=== PATIENT | male | born 1940 | race Caucasian/White ===

== ENCOUNTER 2016-10-18 08:00 | Outpatient (CLI) | payer MEDICARE | END 2016-10-18 08:01 | disposition home or self-care (01) | LOC: LAB 08:00 | PROVIDERS: ATTEND Family Medicine | DX: Z53.9 Procedure and treatment not carried out, unspecified reason (principal) ==

== ENCOUNTER 2016-10-18 15:19 | Outpatient (CLI) | payer MEDICARE ==
[2016-10-18 15:38] LABS: BASOPHILS % (AUTO) 0.5 %; EOSINOPHILS % (AUTO) 0.1 %; HCT - HEMATOCRIT 31.6 % (42.0-52.0); HGB - HEMOGLOBIN 10.4 g/dL (14.0-18.0); LYMPHOCYTES # (AUTO) 1.3 10^3/uL (1.5-3.5); LYMPHOCYTES % (AUTO) 21.9 %; MEAN CORPUSCULAR HEMOGLOBIN 31.2 pg (27.0-31.0); MEAN CORPUSCULAR HGB CONC 32.9 g/dL (32.0-36.0); MEAN CORPUSCULAR VOLUME 94.8 fL (80.0-94.0); MONOCYTES # (AUTO) 0.9 10^3/uL (0.0-1.0); MONOCYTES % (AUTO) 14.6 %; NEUTROPHILS # (AUTO) 3.7 10^3/uL (1.5-6.6); NEUTROPHILS % (AUTO) 62.9 %; RED BLOOD COUNT 3.33 10^6/uL (4.70-6.10); RED CELL DISTRIBUTION WIDTH 15.1 % (12.0-15.0)
[2016-10-18 16:24] LABS: ALBUMIN/GLOBULIN RATIO 0.7 (1.0-2.2); BILIRUBIN,TOTAL 0.6 mg/dL (0.2-1.0); BUN - BLOOD UREA NITROGEN 29 mg/dL (6-20); CALCIUM 8.7 mg/dL (8.5-10.3); CARBON DIOXIDE - CO2 28 mmol/L (21-32); CHLORIDE 96 mmol/L (101-111); CREATININE 1.6 mg/dL (0.6-1.2); GFR - MDRD 42 (>89); GLUCOSE 158 mg/dL (70-100); POTASSIUM 4.4 mmol/L (3.5-5.0); SODIUM 132 mmol/L (135-145); TOTAL PROTEIN 7.8 g/dL (6.7-8.2)
== END 2016-10-18 15:20 | disposition home or self-care (01) ==
LOC: LAB 15:19
PROVIDERS: ATTEND Specialist
DX: I48.91 Unspecified atrial fibrillation (principal); I10 Essential (primary) hypertension; N40.0 Benign prostatic hyperplasia without lower urinary tract symptoms; E78.5 Hyperlipidemia, unspecified
CPT/HCPCS: 36415; 80053; 80162; 85025

== ENCOUNTER 2016-11-23 18:51 | Outpatient (CLI) | payer MEDICARE | END 2016-11-23 18:52 | disposition critical access hospital (66) | LOC: EMS 18:51 | PROVIDERS: ATTEND Surgery | DX: S01.21XA Laceration without foreign body of nose, initial encounter (principal); W18.30XA Fall on same level, unspecified, initial encounter; Y92.008 Other place in unspecified non-institutional (private) residence as the place of occurrence of the external cause | CPT/HCPCS: A0425; A0429 ==

== ENCOUNTER 2016-11-23 19:23 | Emergency (ER) | payer MEDICARE ==
[2016-11-23] MEDS ORDERED: BUFFERED LIDOCAINE 10 ML SYRINGE SUBQ STA (19:28)
--- NOTE | 2016-11-23 19:29 | ED Physician Documentation ---
PD HPI Fall - Stated complaint Stated Complaint: GLF - History obtained from History obtained from: Patient, EMS - History of Present Illness Mechanism of injury: Other (Trip and fall at home reinjuring a recently broken nose with a laceration on the bridge of the nose and some other facial abrasions but no loss of consciousness. He does have A. fib but is not currently anticoagulated. No headache or other injury.) Review of Systems Constitutional: denies: Fever, Chills Throat: denies: Dental pain / toothache, Sore throat Cardiac: denies: Chest pain / pressure, Palpitations Respiratory: denies: Dyspnea, Cough PD PAST MEDICAL HISTORY - Present Medications Home Medications: Ambulatory Orders Medication Instructions Recorded Confirmed Aspirin 81 mg PO DAILY 11/23/16 11/23/16 Cephalexin [Keflex] 500 mg PO QID #20 capsule 11/23/16 Digoxin 125 mcg PO DAILY 11/23/16 11/23/16 Divalproex Sodium [Depakote] 1,000 mg PO DAILY 11/23/16 11/23/16 Escitalopram [Lexapro] 10 mg PO DAILY 11/23/16 11/23/16 Famotidine [Pepcid] 20 mg PO DAILY 11/23/16 11/23/16 Tamsulosin [Flomax] 0.4 mg PO DAILY 11/23/16 11/23/16 buPROPion [Wellbutrin Xl] 150 mg PO TID 11/23/16 11/23/16 diltiaZEM [Cardizem] 30 mg PO DAILY 11/23/16 11/23/16 - Allergies Allergies/Adverse Reactions: Allergies Allergy/AdvReac Type Severity Reaction Status Date / Time No Known Drug Allergies Allergy Verified 11/23/16 19:29 PD ED PE NORMAL - Vitals Vital signs reviewed: Yes - General General: Alert and oriented X 3, No acute distress - HEENT HEENT: PERRL, EOMI, Other (Deep laceration over the bridge of the nose with some facial abrasions on the chin and the right forehead. No facial bony tenderness. The nose is crooked but he does not think that is new.) - Neck Neck: Supple, no meningeal sign, No bony TTP - Derm Derm: Normal color, Warm and dry - Extremities Extremities: No deformity, No tenderness to palpate, Normal ROM s pain - Neuro Neuro: Alert and oriented X 3, paper folder 2-12 intact, No motor deficit, No sensory deficit, Normal speech - Psych Psych: Normal mood, Normal affect Results - Vitals Vitals: Vital Signs - 24 hr 11/23/16 11/23/16 19:24 21:01 Temperature 37.1 C Heart Rate 112 H 97 Respiratory 18 16 Rate Blood Pressure 121/84 H 104/61 O2 Saturation 95 97 Oxygen O2 Source Room air - Labs Labs: Laboratory Tests 11/23/16 11/23/16 19:54 19:54 WBC 5.8 RBC 3.38 L Hgb 10.5 L Hct 30.9 L MCV 91.2 MCH 31.0 MCHC 34.0 RDW 15.2 H Plt Count 147 MPV 7.8 Neut # 3.1 Lymph # 1.4 L [place] # 1.2 H Eos # 0.0 Baso # 0.0 Absolute Nucleated RBC 0.00 Nucleated RBCs 0.0 Sodium 133 L Potassium 4.5 Chloride 98 L Carbon Dioxide 30 Anion Gap 5.0 L BUN 25 H Creatinine 1.2 Estimated GFR (MDRD) 59 L Glucose 88 Calcium 8.5 Total Bilirubin 0.5 AST 31 ALT 13 Alkaline Phosphatase 52 Total Protein 7.3 Albumin 2.7 L Globulin 4.6 H Albumin/Globulin Ratio 0.6 L Lipase 35 Last Dose Date UNKNOWN Last Dose Time UNKNOWN Digoxin 0.7 Valproic Acid 34.8 - Rads (name of study) CT Head and cspine Radiology: EMP read contemporaneously (Nasal bone fractures, degenerative changes in the brain and C-spine) Procedures - Laceration (location) Nasal bridge Length in cm: 1 Wound type: Linear Anesthesia: Lidocaine 1%, With bicarb Wound Preparation: Irrigated copiously NS Skin layer closure: Nylon, Interrupted, Size #-0 - enter number (5-0), Sutures - enter # (4) Other: Tetanus UTD Complexity: Simple PD MEDICAL DECISION MAKING - ED course ED course: The patient and family were counseled as to the diagnosis and need for follow- up. I counseled the patient with regard to signs and symptoms that would necessitate an urgent reevaluation in the emergency department. They understand they are welcome to return at any time if worse or if not improving as expected. This document was made in part using voice recognition software. While efforts are made to proofread this documents, sound alike and grammatical errors may occur. Departure - Departure Disposition: 01 Home, Self Care Clinical Impression: Fall from ground level Open nasal fracture Qualifiers: Encounter type: initial encounter Qualified Code(s): S02.2XXB - Fracture of nasal bones, initial encounter for open fracture Head injury Qualifiers: Encounter type: initial encounter Qualified Code(s): S09.90XA - Unspecified injury of head, initial encounter Condition: Good Record reviewed to determine appropriate education?: Yes Instructions: ED Laceration Facial Sutr Tape Prescriptions: Cephalexin [Keflex] 500 mg PO QID #20 capsule Comments: Come back for any signs of infection which would include: Redness, swelling, drainage, increased pain, or fevers. Follow-up with your physician in 6-7 days for suture removal. Your blood pressure was elevated today on check into the emergency department. This does not mean that you have hypertension, it is a common phenomenon to come to the emergency department and have elevated blood pressure. I recommend that she see her primary care physician within the week to have it rechecked when you are feeling better. Discharge Date/Time: 11/23/16 21:02
[2016-11-23] MEDS ORDERED: BUFFERED LIDOCAINE 10 ML SYRINGE ONE (19:36)
[2016-11-23 20:06] LABS: BASOPHILS % (AUTO) 0.8 %; EOSINOPHILS % (AUTO) 0.2 %; HCT - HEMATOCRIT 30.9 % (42.0-52.0); HGB - HEMOGLOBIN 10.5 g/dL (14.0-18.0); LYMPHOCYTES # (AUTO) 1.4 10^3/uL (1.5-3.5); LYMPHOCYTES % (AUTO) 24.3 %; MEAN CORPUSCULAR VOLUME 91.2 fL (80.0-94.0); MEAN PLATELET VOLUME 7.8 fL (7.4-11.4); MONOCYTES # (AUTO) 1.2 10^3/uL (0.0-1.0); NEUTROPHILS # (AUTO) 3.1 10^3/uL (1.5-6.6); NEUTROPHILS % (AUTO) 54.7 %; RED BLOOD COUNT 3.38 10^6/uL (4.70-6.10); RED CELL DISTRIBUTION WIDTH 15.2 % (12.0-15.0); UNCORRECTED WHITE BLOOD COUNT 5.8 x10^3/uL; WHITE BLOOD COUNT 5.8 x10^3/uL (4.8-10.8)
[2016-11-23 20:18] LABS: ALBUMIN/GLOBULIN RATIO 0.6 (1.0-2.2); BILIRUBIN,TOTAL 0.5 mg/dL (0.2-1.0); BUN - BLOOD UREA NITROGEN 25 mg/dL (6-20); CALCIUM 8.5 mg/dL (8.5-10.3); CARBON DIOXIDE - CO2 30 mmol/L (21-32); CHLORIDE 98 mmol/L (101-111); CREATININE 1.2 mg/dL (0.6-1.2); GFR - MDRD 59 (>89); GLUCOSE 88 mg/dL (70-100); LIPASE 35 U/L (22-51); POTASSIUM 4.5 mmol/L (3.5-5.0); SODIUM 133 mmol/L (135-145); TOTAL PROTEIN 7.3 g/dL (6.7-8.2)
--- NOTE | 2016-11-23 20:46 | CT Preliminary Report ---
Exam: CT Cervical Spine W/O IMPRESSION: Moderately severe S-shaped cervical scoliosis and degenerative change cervical spine with out definite superimposed acute fracture or acute malalignment or prevertebral soft tissue swelling. [facility] SITE ID: [id number]
--- NOTE | 2016-11-23 20:48 | CT Report ---
EXAM: CT CERVICAL SPINE WITHOUT CONTRAST DATE: 11/23/2016 08:10 PM HISTORY: Head inj. neck pain COMPARISONS: None. TECHNIQUE: Thin-section axial images were acquired of the cervical spine without contrast. Post-proce ssing: Coronal and sagittal reformats. Other: None. In accordance with CT protocol optimization, one or more of the following dose reduction techniques w ere utilized for this exam: automated exposure control, adjustment of mA and/or KV based on patient s ize, or use of iterative reconstructive technique. FINDINGS: Alignment: Upper cervical dextroscoliosis with lower cervical levoscoliosis. Minimal anterior listhes is C4 on C5, C5 on C6, and C7 on T1. Bones: No fracture or bone lesion. Interspace Levels/Facets: C1-C2 through C7-T1: Degenerative disk space narrowing most marked C6-C7 greater than C5-C6 and C4-C5 . Advanced degenerative facet joint arthropathy most marked left C4-C5 and C5-C6. Musculature: No fatty atrophy. Other: The paravertebral and prevertebral soft tissues are normal. IMPRESSION: Moderately severe S-shaped cervical scoliosis and degenerative change cervical spine with out definite superimposed acute fracture or acute malalignment or prevertebral soft tissue swelling. [facility] Referring Provider Line: [phone] SITE ID: [id number]
--- NOTE | 2016-11-23 20:49 | CT Preliminary Report ---
Exam: CT Head W/O IMPRESSION: 1. Bilateral nasal bone fractures. Moderate paranasal swelling. 2. Generalized age-related cortical atrophic changes without evidence of acute intracranial abnormali ty. [facility] SITE ID: [id number]
[2016-11-23] MEDS ORDERED: CEPHALEXIN 250 MG Prepack 8 PO ONE ×2 (20:52→20:53)
[2016-11-23 21:02] VITALS: BP 104/61
--- NOTE | 2016-11-23 21:12 | CT Report ---
EXAM: CT HEAD EXAM DATE: 11/23/2016 08:22 p.m. CLINICAL HISTORY: Head injury. COMPARISON: None. TECHNIQUE: Multiaxial CT images were obtained from the foramen magnum to the vertex. IV contrast: Non e. Reformats: Coronal. In accordance with CT protocol optimization, one or more of the following dose reduction techniques w ere utilized for this exam: automated exposure control, adjustment of mA and/or KV based on patient s ize, or use of iterative reconstructive technique. FINDINGS: Parenchyma: No intraparenchymal hemorrhage. No evidence of mass, midline shift, or CT findings of acu te infarction. Ornelas-white differentiation is distinct. Extraaxial Spaces: Normal for age. No subdural or epidural collections identified. Ventricles: The ventricles and cortical sulci are enlarged, consistent with age-related tissue loss. Sinuses: Imaged paranasal sinuses, orbits, and mastoids show no significant abnormality. Bones: No calvarial defect or fracture. Bilateral nasal bone fractures. Moderate overlying soft tissu e swelling. Other: Diffuse chronic microangiopathic white matter changes are evident. IMPRESSION: 1. Bilateral nasal bone fractures. Moderate paranasal swelling. 2 Generalized age-related cortical atrophic changes without evidence of acute intracranial abnormalit y. [facility] Referring Provider Line: [phone] SITE ID: [id number]
== END 2016-11-23 21:02 | disposition home or self-care (01) ==
LOC: EDUNIT# → ED 19:23
DX: S02.2XXB Fracture of nasal bones, initial encounter for open fracture (principal); S00.81XA Abrasion of other part of head, initial encounter; W01.0XXA Fall on same level from slipping, tripping and stumbling without subsequent striking against object, initial encounter; Y92.019 Unspecified place in single-family (private) house as the place of occurrence of the external cause; R03.0 Elevated blood-pressure reading, without diagnosis of hypertension; I48.91 Unspecified atrial fibrillation; Z79.82 Long term (current) use of aspirin
CPT/HCPCS: 12011; 36415; 70450; 72125; 80053; 80162; 80164; 83690; 85025; 99283; 99284

== ENCOUNTER 2016-12-01 16:18 | Emergency (ER) | payer MEDICARE ==
--- NOTE | 2016-12-01 17:06 | ED Physician Documentation ---
History of Present Illness - Stated complaint Stated Complaint: LBP/COUGH - Chief complaint Chief Complaint: General - History obtained from History obtained from: Patient, Family - History of Present Illness Timing: Other (76-year-old gentleman with history of atrial fibrillation presents with a week of intermittently productive cough and some low blood pressures at home. They have been monitoring his vital signs, blood pressures as low as 70/50 with heart rates up to 150. He denies any chest pain or trouble breathing. He vacillates on whether or not he has been dizzy.) Review of Systems Ten Systems: 10 systems reviewed and negative Constitutional: reports: Fatigue. denies: Fever, Chills Ears: denies: Loss of hearing, Drainage/discharge Nose: denies: Rhinorrhea / runny nose, Congestion Cardiac: denies: Chest pain / pressure, Palpitations Respiratory: reports: Cough. denies: Dyspnea GI: denies: Abdominal Pain, Nausea, Vomiting, Diarrhea PD PAST MEDICAL HISTORY - Past Medical History Cardiovascular: Hypertension, High cholesterol, Atrial fibrillation - Present Medications Home Medications: Ambulatory Orders Medication Instructions Recorded Confirmed Digoxin 125 mcg PO DAILY 11/23/16 12/01/16 Divalproex Sodium [Depakote] 1,000 mg PO DAILY 11/23/16 12/01/16 Escitalopram [Lexapro] 10 mg PO DAILY 11/23/16 12/01/16 Famotidine [Pepcid] 20 mg PO DAILY 11/23/16 12/01/16 Tamsulosin [Flomax] 0.4 mg PO DAILY 11/23/16 12/01/16 buPROPion [Wellbutrin Xl] 150 mg PO TID 11/23/16 12/01/16 diltiaZEM [Cardizem] 30 mg PO DAILY 11/23/16 12/01/16 Aspirin [Aspirin EC] 81 mg PO DAILY 12/01/16 12/01/16 - Allergies Allergies/Adverse Reactions: Allergies Allergy/AdvReac Type Severity Reaction Status Date / Time No Known Drug Allergies Allergy Verified 11/23/16 19:29 - Social History Does the pt smoke?: No Smoking Status: Never smoker PD ED PE NORMAL - Vitals Vital signs reviewed: Yes - General General: Alert and oriented X 3, No acute distress - HEENT HEENT: PERRL, EOMI, Other (For sutures and the nasal bridge were removed during exam) - Neck Neck: Supple, no meningeal sign, No bony TTP - Cardiac Cardiac: Other (Irregularly irregular) - Respiratory Respiratory: Other (Rhonchi at both bases) - Abdomen Abdomen: Soft, Non tender - Derm Derm: Normal color, Warm and dry - Extremities Extremities: No edema, No calf tenderness / cord - Neuro Neuro: Alert and oriented X 3, Normal speech - Psych Psych: Normal mood, Normal affect Results - Vitals Vitals: Vital Signs - 24 hr 12/01/16 12/01/16 12/01/16 16:23 18:34 18:51 Temperature Heart Rate 126 H 83 Heart Rate [ 92 Sitting] Heart Rate [ 96 Standing] Heart Rate [ 102 H Supine] Respiratory 20 16 Rate Blood Pressure 93/55 L 113/67 Blood Pressure 114/63 [Sitting] Blood Pressure 130/80 [Standing] Blood Pressure 116/72 [Supine] O2 Saturation 96 98 12/01/16 18:56 Temperature 35.9 C L Heart Rate Heart Rate [ Sitting] Heart Rate [ Standing] Heart Rate [ Supine] Respiratory Rate Blood Pressure Blood Pressure [Sitting] Blood Pressure [Standing] Blood Pressure [Supine] O2 Saturation Oxygen O2 Source Room air - EKG (time done) 1641 Rate: Rate (enter#) (68) Rhythm: Atrial fibrillation [place]: Normal QRS: Normal Ischemia: Normal ST segments Computer interpretation: Agree with computer - Labs Labs: Laboratory Tests 12/01/16 12/01/16 12/01/16 17:18 17:18 17:18 WBC 5.0 RBC 3.37 L Hgb 10.3 L Hct 31.2 L MCV 92.6 MCH 30.5 MCHC 32.9 RDW 15.0 Plt Count 160 MPV 7.9 Neut # 2.6 Lymph # 1.4 L Humphreys # 0.9 Eos # 0.0 Baso # 0.0 Absolute Nucleated RBC 0.00 Nucleated RBCs 0.0 Sodium 134 L Potassium 4.2 Chloride 99 L Carbon Dioxide 30 Anion Gap 5.0 L BUN 25 H Creatinine 1.2 Estimated GFR (MDRD) 59 L Glucose 103 H Calcium 8.6 Total Bilirubin 0.4 AST 30 ALT 13 Alkaline Phosphatase 53 Troponin I < 0.04 Total Protein 7.6 Albumin 2.7 L Globulin 4.9 H Albumin/Globulin Ratio 0.6 L Lipase 36 Last Dose Date UNKNOWN Last Dose Time UNKNOWN Digoxin 0.7 Valproic Acid 12/01/16 17:18 WBC RBC Hgb Hct MCV MCH MCHC RDW Plt Count MPV Neut # Lymph # Humphreys # Eos # Baso # Absolute Nucleated RBC Nucleated RBCs Sodium Potassium Chloride Carbon Dioxide Anion Gap BUN Creatinine Estimated GFR (MDRD) Glucose Calcium Total Bilirubin AST ALT Alkaline Phosphatase Troponin I Total Protein Albumin Globulin Albumin/Globulin Ratio Lipase Last Dose Date UNKNOWN Last Dose Time UNKNOWN Digoxin Valproic Acid 30.8 - Rads (name of study) 2v chest Radiology: EMP read contemporaneously (Audible COPD without acute abnormality) PD MEDICAL DECISION MAKING - ED course ED course: 76-year-old gentleman with A. fib presents with dizziness and cough. His chest x-ray is clear and he does not have a white count. He was observed for several hours and orthostatics were done, I could not re-create any of the abnormal vital signs he had at home and he requested discharge. They were advised to call his firer watertender tomorrow for expedited follow-up. Departure - Departure Disposition: 01 Home, Self Care Clinical Impression: Cough Atrial fibrillation Qualifiers: Atrial fibrillation type: chronic Qualified Code(s): I48.2 - Chronic atrial fibrillation Condition: Good Record reviewed to determine appropriate education?: Yes Instructions: Atrial Fibrillation Dc Comments: Return if worse or if new symptoms develop. Call your firer watertender tomorrow for the next available appointment.
[2016-12-01] MEDS: SODIUM CHLORIDE 0.9% 500 ML IV ONE (17:21)
[2016-12-01 17:39] LABS: BASOPHILS % (AUTO) 0.6 %; EOSINOPHILS % (AUTO) 0.3 %; HCT - HEMATOCRIT 31.2 % (42.0-52.0); HGB - HEMOGLOBIN 10.3 g/dL (14.0-18.0); LYMPHOCYTES # (AUTO) 1.4 10^3/uL (1.5-3.5); LYMPHOCYTES % (AUTO) 27.7 %; MEAN CORPUSCULAR HEMOGLOBIN 30.5 pg (27.0-31.0); MEAN CORPUSCULAR HGB CONC 32.9 g/dL (32.0-36.0); MEAN CORPUSCULAR VOLUME 92.6 fL (80.0-94.0); MEAN PLATELET VOLUME 7.9 fL (7.4-11.4); MONOCYTES # (AUTO) 0.9 10^3/uL (0.0-1.0); MONOCYTES % (AUTO) 18.7 %; NEUTROPHILS # (AUTO) 2.6 10^3/uL (1.5-6.6); NEUTROPHILS % (AUTO) 52.7 %; RED BLOOD COUNT 3.37 10^6/uL (4.70-6.10)
[2016-12-01 17:56] LABS: ALBUMIN/GLOBULIN RATIO 0.6 (1.0-2.2); BILIRUBIN,TOTAL 0.4 mg/dL (0.2-1.0); BUN - BLOOD UREA NITROGEN 25 mg/dL (6-20); CALCIUM 8.6 mg/dL (8.5-10.3); CARBON DIOXIDE - CO2 30 mmol/L (21-32); CHLORIDE 99 mmol/L (101-111); CREATININE 1.2 mg/dL (0.6-1.2); GFR - MDRD 59 (>89); GLUCOSE 103 mg/dL (70-100); LIPASE 36 U/L (22-51); POTASSIUM 4.2 mmol/L (3.5-5.0); SODIUM 134 mmol/L (135-145); TOTAL PROTEIN 7.6 g/dL (6.7-8.2)
--- NOTE | 2016-12-01 18:23 | XRAY Preliminary Report ---
Exam: XR Chest 2 View PA/LAT IMPRESSION: 1. No consolidation noted. 2. No pneumothorax or effusions. Probable COPD. [facility] SITE ID: [id number]
[2016-12-01 18:58] VITALS: BP 116/72
--- NOTE | 2016-12-01 19:21 | XRAY Report ---
EXAM: CHEST RADIOGRAPHY EXAM DATE: 12/01/2016 06:10 PM. CLINICAL HISTORY: Cough. COMPARISON: None. TECHNIQUE: 2 views. FINDINGS: Lungs/Pleura: Lungs are mildly hyperinflated. No focal opacities. No pneumothorax or effusions. Pleur al thickening is present at the apices. Mediastinum: No cardiac enlargement. Calcified bilateral hilar nodes are noted. Other: None. IMPRESSION: 1. No consolidation noted. 2. No pneumothorax or effusions. Probable COPD. [facility] Referring Provider Line: [phone] SITE ID: [id number]
== END 2016-12-01 19:13 | disposition home or self-care (01) ==
LOC: ED 16:18
DX: R05 Cough (principal); R42 Dizziness and giddiness; I48.2 Chronic atrial fibrillation; I10 Essential (primary) hypertension; E78.00 Pure hypercholesterolemia, unspecified; Z79.82 Long term (current) use of aspirin
CPT/HCPCS: 36415; 71020; 80053; 80162; 80164; 83690; 84484; 85025; 93005; 99283; 99284

== ENCOUNTER 2017-03-07 16:20 | Outpatient (CLI) | payer MEDICARE ==
[2017-03-07 18:51] LABS: BASOPHILS % (AUTO) 0.6 %; EOSINOPHILS % (AUTO) 0.2 %; HCT - HEMATOCRIT 25.9 % (42.0-52.0); HGB - HEMOGLOBIN 8.6 g/dL (14.0-18.0); LYMPHOCYTES % (AUTO) 24.6 %; MEAN CORPUSCULAR HEMOGLOBIN 30.1 pg (27.0-31.0); MEAN CORPUSCULAR HGB CONC 33.1 g/dL (32.0-36.0); MEAN CORPUSCULAR VOLUME 90.8 fL (80.0-94.0); MONOCYTES % (AUTO) 17.7 %; NEUTROPHILS % (AUTO) 56.9 %; RED BLOOD COUNT 2.85 10^6/uL (4.70-6.10); RED CELL DISTRIBUTION WIDTH 17.6 % (12.0-15.0); UNCORRECTED WHITE BLOOD COUNT 3.6 x10^3/uL; WHITE BLOOD COUNT 3.6 x10^3/uL (4.8-10.8)
[2017-03-07 19:02] LABS: ALBUMIN/GLOBULIN RATIO 0.5 (1.0-2.2); BILIRUBIN,DIRECT 0.1 mg/dL (0.1-0.5); BILIRUBIN,TOTAL 0.5 mg/dL (0.2-1.0); BUN - BLOOD UREA NITROGEN 28 mg/dL (6-20); CARBON DIOXIDE - CO2 26 mmol/L (21-32); CHLORIDE 97 mmol/L (101-111); CREATININE 1.5 mg/dL (0.6-1.2); GFR - MDRD 45 (>89); GLUCOSE 119 mg/dL (70-100); POTASSIUM 4.7 mmol/L (3.5-5.0); SODIUM 129 mmol/L (135-145); TOTAL PROTEIN 6.6 g/dL (6.7-8.2)
[2017-03-07 19:19] LABS: BAND NEUTROPHILS % (MANUAL) 2 %; LYMPHOCYTES % (MANUAL) 31 %; NEUTROPHILS % (MANUAL) 55 %; NP AUTO DIFFERENTIAL? YES; NP MAN DIFFERENTIAL? NO; PLATELET ESTIMATE, MANUAL DECREASED (<130,000) (NORMAL); PLATELET MORPHOLOGY NORMAL APPEARANCE (NORMAL); TOTAL CELLS COUNTED 100
== END 2017-03-07 16:21 | disposition home or self-care (01) ==
LOC: LAB.R 16:20
DX: R79.89 Other specified abnormal findings of blood chemistry (principal); Z51.81 Encounter for therapeutic drug level monitoring; R68.89 Other general symptoms and signs; R94.5 Abnormal results of liver function studies
CPT/HCPCS: 80053; 80164; 82248; 85025

== ENCOUNTER 2017-03-28 17:48 | Outpatient (CLI) | payer MEDICARE ==
[2017-03-28 18:42] LABS: BASOPHILS % (AUTO) 0.4 %; EOSINOPHILS % (AUTO) 0.2 %; HCT - HEMATOCRIT 26.5 % (42.0-52.0); HGB - HEMOGLOBIN 8.8 g/dL (14.0-18.0); LYMPHOCYTES % (AUTO) 26.5 %; MEAN CORPUSCULAR HEMOGLOBIN 29.9 pg (27.0-31.0); MEAN CORPUSCULAR HGB CONC 33.1 g/dL (32.0-36.0); MEAN CORPUSCULAR VOLUME 90.3 fL (80.0-94.0); MEAN PLATELET VOLUME 8.8 fL (7.4-11.4); MONOCYTES # (AUTO) 0.6 10^3/uL (0.0-1.0); MONOCYTES % (AUTO) 16.8 %; NEUTROPHILS # (AUTO) 2.1 10^3/uL (1.5-6.6); NEUTROPHILS % (AUTO) 56.1 %; RED BLOOD COUNT 2.94 10^6/uL (4.70-6.10); RED CELL DISTRIBUTION WIDTH 16.1 % (12.0-15.0); UNCORRECTED WHITE BLOOD COUNT 3.8 x10^3/uL; WHITE BLOOD COUNT 3.8 x10^3/uL (4.8-10.8)
== END 2017-03-28 17:49 | disposition home or self-care (01) ==
LOC: LAB.R 17:48
DX: D64.9 Anemia, unspecified (principal)
CPT/HCPCS: 85025

== ENCOUNTER 2017-04-08 08:00 | Outpatient (CLI) | payer MEDICARE ==
[2017-04-08 11:44] LABS: HCT - HEMATOCRIT 29.5 % (42.0-52.0); MEAN CORPUSCULAR HEMOGLOBIN 30.3 pg (27.0-31.0); MEAN CORPUSCULAR VOLUME 89.1 fL (80.0-94.0); MEAN PLATELET VOLUME 7.3 fL (7.4-11.4); RED BLOOD COUNT 3.31 10^6/uL (4.70-6.10); RED CELL DISTRIBUTION WIDTH 15.8 % (12.0-15.0)
== END 2017-04-08 08:01 | disposition home or self-care (01) ==
LOC: LAB.R 08:00
DX: R79.9 Abnormal finding of blood chemistry, unspecified (principal)

== ENCOUNTER 2017-04-14 14:16 | Outpatient (CLI) | payer MEDICARE | END 2017-04-14 14:17 | disposition critical access hospital (66) | LOC: EMS 14:16 | PROVIDERS: ATTEND Surgery | DX: R50.9 Fever, unspecified (principal) | CPT/HCPCS: A0425; A0429 ==

== ENCOUNTER 2017-04-14 14:39 | Inpatient (IN) | payer MEDICARE ==
--- NOTE | 2017-04-14 15:17 | ED Physician Documentation ---
PD HPI URI - Stated complaint Stated Complaint: PNA - Chief complaint Chief Complaint: Resp - History obtained from History obtained from: Patient, Family - History of Present Illness Timing - onset: How many days ago (3) Timing duration: Days (3) Timing details: Gradual onset, Still present Associated symptoms: Fever, Chills, Nasal congestion, Rhinorrhea, Dry cough, Dyspnea Contributing factors: Sick contact Improves by: Rest, Medication Worsened by: Activity Similar symptoms before: Diagnosis (pneumonia) Recently seen: Other - Additional information Additional information: 77-year-old male was in [facility] when he developed pneumonia and was treated with a Z-Akash. He did have some improvement and he was able to go back home last week. He was well for several days and then over the past 3 days he has had increase in cough and congestion has developed a fever and shortness of breath. Review of Systems Constitutional: reports: Fever, Chills Eyes: denies: Decreased vision Ears: denies: Ear pain Nose: reports: Congestion. denies: Rhinorrhea / runny nose Throat: denies: Sore throat Cardiac: denies: Chest pain / pressure, Palpitations Respiratory: reports: Dyspnea, Cough GI: denies: Abdominal Pain, Nausea, Vomiting : denies: Dysuria PD PAST MEDICAL HISTORY - Past Medical History Past Medical History: Yes Cardiovascular: Hypertension, High cholesterol, Atrial fibrillation Neuro: Dementia Other Past Medical History: Converted from atrial fib a couple of months ago. Has implanted monitor - Past Surgical History Past Surgical History: Yes - Present Medications Home Medications: Ambulatory Orders Medication Instructions Recorded Confirmed Divalproex Sodium [Depakote] 1,000 mg PO DAILY 11/23/16 04/14/17 Escitalopram [Lexapro] 10 mg PO DAILY 11/23/16 04/14/17 Famotidine [Pepcid] 20 mg PO DAILY 11/23/16 04/14/17 Tamsulosin [Flomax] 0.4 mg PO DAILY 11/23/16 04/14/17 buPROPion [Wellbutrin Xl] 150 mg PO TID 11/23/16 04/14/17 Aspirin [Aspirin EC] 81 mg PO DAILY 12/01/16 04/14/17 Amiodarone HCl 1 tab PO DAILY 04/14/17 04/14/17 Loperamide [Imodium] 1 cap PO DAILY PRN 04/14/17 04/14/17 Polyethylene Glycol 3350 [Miralax] 1 pkt PO DAILY 04/14/17 04/14/17 Sennosides [Senna] 1 tab PO DAILY 04/14/17 04/14/17 - Allergies Allergies/Adverse Reactions: Allergies Allergy/AdvReac Type Severity Reaction Status Date / Time No Known Drug Allergies Allergy Verified 04/14/17 14:51 - Social History Does the pt smoke?: No Smoking Status: Never smoker Does the pt drink ETOH?: No Does the pt have substance abuse?: No - Immunizations Immunizations are current?: Yes - POLST Patient has POLST: Yes PD ED PE NORMAL - Vitals Vital signs reviewed: Yes (febrile and hypertension) - General General: Well developed/nourished, Other (The patient is breathing with persed lips ) - HEENT HEENT: Atraumatic, PERRL, EOMI, Other (The left TM is inflamed the right is clear) - Neck Neck: Supple, no meningeal sign, No bony TTP - Cardiac Cardiac: RRR, No murmur - Respiratory Respiratory: No respiratory distress, Other (diminished breath sounds bilaterally ) - Abdomen Abdomen: Soft, Non tender - Back Back: No CVA TTP, No spinal TTP - Derm Derm: Normal color, Warm and dry, No rash - Extremities Extremities: No deformity, No edema - Neuro Neuro: No motor deficit, No sensory deficit Eye Opening: Spontaneous Motor: Obeys Commands Verbal: Oriented GCS Score: 15 - Psych Psych: Normal mood, Normal affect Results - Vitals Vitals: Vital Signs - 24 hr 04/14/17 04/14/17 14:44 15:45 Temperature 37.6 C H 37.3 C Heart Rate 99 100 Respiratory 20 18 Rate Blood Pressure 142/73 H 115/60 O2 Saturation 93 98 Oxygen O2 Source Room air - Labs Labs: Laboratory Tests 04/14/17 04/14/17 04/14/17 15:24 15:24 15:24 WBC 6.5 RBC 3.01 L Hgb 9.0 L Hct 26.7 L MCV 88.5 MCH 29.8 MCHC 33.6 RDW 14.7 Plt Count 178 MPV 7.1 L Neut # 4.7 Lymph # 0.7 L Edgar # 1.1 H Eos # 0.0 Baso # 0.0 Absolute Nucleated RBC 0.00 Nucleated RBC % 0.0 Sodium 127 L Potassium 4.1 Chloride 94 L Carbon Dioxide 25 Anion Gap 8.0 BUN 19 Creatinine 1.1 Estimated GFR (MDRD) 65 L Glucose 95 Lactic Acid Calcium 8.1 L Total Bilirubin 0.7 AST 22 ALT 12 Alkaline Phosphatase 60 Troponin I < 0.04 Total Protein 7.1 Albumin 2.2 L Globulin 4.9 H Albumin/Globulin Ratio 0.4 L Lipase 37 04/14/17 15:24 WBC RBC Hgb Hct MCV MCH MCHC RDW Plt Count MPV Neut # Lymph # Edgar # Eos # Baso # Absolute Nucleated RBC Nucleated RBC % Sodium Potassium Chloride Carbon Dioxide Anion Gap BUN Creatinine Estimated GFR (MDRD) Glucose Lactic Acid 0.7 Calcium Total Bilirubin AST ALT Alkaline Phosphatase Troponin I Total Protein Albumin Globulin Albumin/Globulin Ratio Lipase - Rads (name of study) 1 view chest Radiology: Prelim report reviewed (Impression: Right pleural effusion with overlying atelectasis/infiltrate.), EMP read indepedently, See rad report PD MEDICAL DECISION MAKING - ED course Complexity details: reviewed old records, reviewed results, re-evaluated patient , considered differential, d/w patient, d/w family ED course: 77-year-old male with a cardioversion for afib in February has been a resident at [facility] for respite care while family was on vacation and during that time he developed a pneumonia and was treated with azithromycin about 2 weeks ago. He seemed to improve and he has gone home about one week ago. Over the past 3 days he has developed a cough and now fever and today he has had a precipitous decline. The daughter was going to wait until tomorrow to go in to the doctor and this afternoon he was worse with fever and choking on phlem. He has fever, infiltrate on x-ray, dyspnea and hypoxia on room air. Departure - Departure Disposition: [facility] DC/Xfer Clinical Impression: Pneumonia Qualifiers: Pneumonia type: due to unspecified organism Laterality: right Lung location: lower lobe of lung Qualified Code(s): J18.1 - Lobar pneumonia, unspecified organism
--- NOTE | 2017-04-14 15:35 | XRAY Preliminary Report ---
Exam: XR CHEST 1 VIEW IMPRESSION: Right pleural effusion with overlying atelectasis/infiltrate. [facility] SITE ID: [id number]
[2017-04-14 15:38] LABS: BASOPHILS % (AUTO) 0.5 %; HCT - HEMATOCRIT 26.7 % (42.0-52.0); LYMPHOCYTES # (AUTO) 0.7 10^3/uL (1.5-3.5); LYMPHOCYTES % (AUTO) 10.2 %; MEAN CORPUSCULAR HEMOGLOBIN 29.8 pg (27.0-31.0); MEAN CORPUSCULAR HGB CONC 33.6 g/dL (32.0-36.0); MEAN CORPUSCULAR VOLUME 88.5 fL (80.0-94.0); MEAN PLATELET VOLUME 7.1 fL (7.4-11.4); MONOCYTES # (AUTO) 1.1 10^3/uL (0.0-1.0); MONOCYTES % (AUTO) 16.7 %; NEUTROPHILS # (AUTO) 4.7 10^3/uL (1.5-6.6); NEUTROPHILS % (AUTO) 72.6 %; RED BLOOD COUNT 3.01 10^6/uL (4.70-6.10); RED CELL DISTRIBUTION WIDTH 14.7 % (12.0-15.0); UNCORRECTED WHITE BLOOD COUNT 6.5 x10^3/uL; WHITE BLOOD COUNT 6.5 x10^3/uL (4.8-10.8)
--- NOTE | 2017-04-14 15:38 | XRAY Report ---
EXAM: CHEST RADIOGRAPHY EXAM DATE: 04/14/2017 03:11 PM. CLINICAL HISTORY: Productive cough for one week. COMPARISON: 12/01/2016. TECHNIQUE: 1 view. FINDINGS: Lungs/Pleura: Small to moderate right pleural effusion with right base haziness. No left pleural effu vika. No pneumothorax. Mediastinum: Within exam limitations, the cardiomediastinal contour is normal. Calcified right hilar nodes again noted. Other: No bony abnormality identified. Loop recorder projects over the heart. IMPRESSION: Right pleural effusion with overlying atelectasis/infiltrate. [facility] Referring Provider Line: [phone] SITE ID: [id number]
[2017-04-14 15:45] LABS: ALBUMIN/GLOBULIN RATIO 0.4 (1.0-2.2); BILIRUBIN,TOTAL 0.7 mg/dL (0.2-1.0); CALCIUM 8.1 mg/dL (8.5-10.3); CREATININE 1.1 mg/dL (0.6-1.2); POTASSIUM 4.1 mmol/L (3.5-5.0); TOTAL PROTEIN 7.1 g/dL (6.7-8.2)
[2017-04-14] MEDS ORDERED: cefTRIAXone 1 GM in SODIUM CHLORIDE 0.9% MINIBAG 100 ML IV STA (16:29)
[2017-04-14] MEDS ORDERED: ACETAMINOPHEN 325 MG TABLET PO PRN (17:11)
[2017-04-14] MEDS ORDERED: TEMAZEPAM 15 MG CAPSULE PO PRN (17:11)
[2017-04-14] MEDS ORDERED: SODIUM CHLORIDE FLUSH 0.9% 10 ML SYRINGE IVP PRN (17:11)
[2017-04-14] MEDS ORDERED: HYDROcod/ACETAM 10 MG/325 MG TABLET PO PRN (17:11)
[2017-04-14] MEDS ORDERED: cefTRIAXone 1 GM VIAL ONE (17:32)
--- NOTE | 2017-04-14 18:43 | HISTORY & PHYSICAL EXAMINATION ---
Chief Complaint - Chief Complaint Chief Complaint: shortness of breath Respiratory Admission HPI - Admitted From Admitted from: ED - History Obtained From Records Reviewed: RN notes reviewed, Old records reviewed History obtained from: Patient, Family - History of Present Illness Severity at the worst: reports: Moderate Context of Onset: reports: Exertion, Inspiration Timing: reports: Gradual onset Duration: reports: Unknown (Pneumonia noted as an outpatient and never resolved. ) Improved with: reports: Rest, Oxygen Worsened by: reports: Exertion, Inspiration Associated symptoms: reports: General weakness HPI Comment/Other: Sagar Sorensen is a 77-year-old male with a history of paroxysmal atrial fibrillation, tremor, hypertension, hyperlipidemia, and dementia who was recently sent home with his son and [id number] after completing rehab at [facility]. He developed pneumonia and was treated with a Z-Chely. He did have some improvement and was able to go back home last week. He was well for several days and then over the past 3 days he has had increase in cough, congestion, has developed a fever and shortness of breath. He will be admitted to the hospitalist service for further IV antibiotic treatment. PMH/PSH - Past Medical History Cardiovascular: positive: Hypertension, High cholesterol, Atrial fibrillation, Other (hx of AAA) Respiratory: positive: Pneumonia, Shortness of breath Neuro: positive: Dementia Endocrine/Autoimmune: positive: None GI: positive: GERD, Chronic diarrhea, Chronic constipation EDM OPERATOR: positive: None : positive: Benign prostate hypertrophy, Incontinence HEENT: positive: None Psych: positive: Bipolar disorder Musculoskeletal: positive: Fatigue MRSA Hx?: No Other Past Medical History: Converted from atrial fib a couple of months ago. Has implanted monitor - Past Surgical History Cardiovascular: positive: AAA Social & Family Hx - Social History Does the pt smoke?: No Smoking Status: Never smoker Does the pt drink ETOH?: No Does the pt have substance abuse?: No - POLST Patient has POLST: Yes Meds/Allgy - Home Medications Home Medications: Ambulatory Orders Medication Instructions Recorded Confirmed Divalproex Sodium [Depakote] 1,000 mg PO DAILY 11/23/16 04/14/17 Escitalopram [Lexapro] 10 mg PO DAILY 11/23/16 04/14/17 Famotidine [Pepcid] 20 mg PO DAILY 11/23/16 04/14/17 Tamsulosin [Flomax] 0.4 mg PO DAILY 11/23/16 04/14/17 buPROPion [Wellbutrin Xl] 150 mg PO DAILY 11/23/16 04/15/17 Aspirin [Aspirin EC] 81 mg PO DAILY 12/01/16 04/14/17 Amiodarone HCl 200 mg PO BID 04/14/17 04/14/17 Digoxin [Digoxin] 125 mcg PO DAILY 04/14/17 04/14/17 Loperamide [Imodium] 2 mg PO DAILY PRN 04/14/17 04/14/17 Polyethylene Glycol 3350 [Miralax] 1 pkt PO DAILY 04/14/17 04/14/17 Sennosides [Senna] 1 tab PO DAILY 04/14/17 04/14/17 - Allergies Allergies/Adverse Reactions: Allergies Allergy/AdvReac Type Severity Reaction Status Date / Time No Known Drug Allergies Allergy Verified 04/14/17 14:51 Review of Systems - Constitutional Constitutional: reports: Fatigue, Fever, Chills, Weakness, Poor appetite - Ears, Nose & Throat Ears, Nose & Throat: reports: Hearing loss, Nasal discharge, Nasal congestion, Postnasal drainage - Respiratory Respiratory: reports: Cough, SOB at rest, SOB with exertion - Musculoskeletal Musculoskeletal: reports: Muscle aches - Integumentary Integumentary: reports: Dryness - Neurological Neurological: reports: General weakness, Memory problems, Pre-existing deficit, Abnormal gait - All Other Systems All Other Systems: reports: Reviewed and negative Exam - Vital Signs Reviewed Vital Signs: Yes Vital Signs: Vital Signs x48h Temp Pulse Pulse Resp BP BP Pulse Ox 04/14/17 18:21 37.9 C H 997 H 20 130/60 93 04/14/17 17:33 94 20 136/65 H 94 - Physical Exam General Appearance: positive: No acute distress, Other (calm) Eyes Bilateral: positive: Normal inspection ENT: positive: ENT inspection nml, Pharynx nml, Dry mucous membranes Neck: positive: Nml inspection, Thyroid nml, No JVD, Trachea midline Respiratory: positive: Chest non-tender, No respiratory distress, Rhonchi Cardiovascular: positive: Regular rate & rhythm, No gallop, Systolic murmur Peripheral Pulses: positive: 2+ Abdomen: positive: Non-tender, No organomegaly, Nml bowel sounds, No distention Back: positive: Nml inspection Skin: positive: Color nml, No rash, Warm, Dry, Pallor Extremities: positive: Non-tender, Nml appearance, No pedal edema Neurologic/Psychiatric: positive: Disoriented to place, Disoriented to time, Weakness, Sensory loss, Depressed mood/affect Reflexes: Bicep (R): 2+, Bicep (L): 2+ Results - Lab Results Lab results reviewed: Yes Fish Bones: 04/15/17 05:54 04/15/17 05:54 - Diagnostic Imaging Results Diagnostic Imaging Results: positive: Prelim report reviewed - EKG Results EKG Interpreted Independently: Yes ARRA - Anticipated LOS Anticipated Stay Length: 2 or more midnights - AMI - Statin at Admit Aspirin Prescribed on Admit: Yes - Stroke - Rehab Assessment Rehab services assessment to be ordered?: Yes - DVT/VTE - Prophylaxis VTE/DVT Device ordered at admit?: Yes VTE/DVT Prophylaxis med ordered at admit?: Yes Impression/Plan - Problem List Problem List: Pneumonia: Patient was at [facility] when he was diagnosed with pneumonia and was treated with a Z-chely. He did have some improvement and was able to return home with son and [id number] last week. Over the past several days, he has had increased cough, congestion, fever and shortness of breath. Chest x-ray on admission shows right pleural effusion with overlying atelectasis/infiltrates. Plan: Treat with IV antibiotics for at least 72 hours, then transition to oral antibiotics. Incentive spirometry per RT, nebulizers as needed. Encourage activity. Paroxysmal atrial fibrillation: Patient has had this for greater than one year. He has since been followed by cardiology and has an implantable loop recorder. Plan: Continue rate and rhythm control with previously prescribed medications. Cough: Patient's [id number] states that patient's cough was the troubling symptom noted. He has been having a productive cough with green, thick sputum. Plan: Incentive spriometry per RT, and treat his pneumonia. Oxygen as needed. DVT propylaxis with SCDs and enoxaparin. Greater than 30 minutes was spent [id number] for exam and counseling.
[2017-04-14] MEDS: SODIUM CHLORIDE 0.9% 1,000 ML IV SCH (18:59)
[2017-04-14] MEDS: SODIUM CHLORIDE FLUSH 0.9% 10 ML SYRINGE IVP SCH (19:26)
[2017-04-14] MEDS ORDERED: LOPERAMIDE 2 MG CAPSULE PO PRN (21:39)
[2017-04-14] MEDS ORDERED: LINEZOLID 600 MG/300 ML 600 MG/300 ML BAG IV SCH (22:00)
[2017-04-14] MEDS ORDERED: PIPERACILLIN/TAZOBACTAM 4.5 GM in SODIUM CHLORIDE 0.9% MINIBAG 100 ML IV SCH ×4 (22:00)
[2017-04-14] MEDS: FERROUS SULFATE 325 MG TABLET PO SCH (22:14)
[2017-04-14] MEDS: AMIODARONE 200 MG TABLET PO SCH (22:14)
[2017-04-15] MEDS: SODIUM CHLORIDE 0.9% 1,000 ML IV SCH ×2 (03:12→21:25)
[2017-04-15] MEDS ORDERED: LINEZOLID 600 MG/300 ML 600 MG/300 ML BAG IV SCH (04:00)
[2017-04-15] MEDS: PIPERACILLIN/TAZOBACTAM 4.5 GM in SODIUM CHLORIDE 0.9% MINIBAG 100 ML IV SCH ×2 (05:22→11:41)
[2017-04-15] MEDS: SODIUM CHLORIDE FLUSH 0.9% 10 ML SYRINGE IVP SCH ×3 (05:49→21:25)
[2017-04-15 06:00] LABS: BASOPHILS % (AUTO) 0.4 %; EOSINOPHILS % (AUTO) 0.3 %; HCT - HEMATOCRIT 25.4 % (42.0-52.0); HGB - HEMOGLOBIN 8.5 g/dL (14.0-18.0); LYMPHOCYTES # (AUTO) 0.8 10^3/uL (1.5-3.5); LYMPHOCYTES % (AUTO) 15.5 %; MEAN CORPUSCULAR HEMOGLOBIN 29.9 pg (27.0-31.0); MEAN CORPUSCULAR HGB CONC 33.6 g/dL (32.0-36.0); MEAN CORPUSCULAR VOLUME 89.1 fL (80.0-94.0); MEAN PLATELET VOLUME 6.8 fL (7.4-11.4); MONOCYTES # (AUTO) 1.3 10^3/uL (0.0-1.0); MONOCYTES % (AUTO) 23.8 %; NEUTROPHILS # (AUTO) 3.2 10^3/uL (1.5-6.6); RED BLOOD COUNT 2.85 10^6/uL (4.70-6.10); RED CELL DISTRIBUTION WIDTH 15.3 % (12.0-15.0); UNCORRECTED WHITE BLOOD COUNT 5.4 x10^3/uL; WHITE BLOOD COUNT 5.4 x10^3/uL (4.8-10.8)
[2017-04-15 06:12] LABS: ALBUMIN/GLOBULIN RATIO 0.4 (1.0-2.2); BILIRUBIN,TOTAL 0.7 mg/dL (0.2-1.0); CALCIUM 8.1 mg/dL (8.5-10.3); CREATININE 0.9 mg/dL (0.6-1.2); POTASSIUM 3.8 mmol/L (3.5-5.0); TOTAL PROTEIN 6.8 g/dL (6.7-8.2)
[2017-04-15] MEDS: AMIODARONE 200 MG TABLET PO SCH ×2 (08:28→21:25)
[2017-04-15] MEDS: POLYETHYLENE GLYCOL 3350 17 GM PACKET PO SCH (08:28)
[2017-04-15] MEDS: DIGOXIN 125 MCG TABLET PO SCH (08:28)
[2017-04-15] MEDS: SENNA 8.6 MG TABLET PO SCH (08:28)
[2017-04-15] MEDS: ESCITALOPRAM 10 MG TABLET PO SCH (08:28)
[2017-04-15] MEDS: DIVALPROEX DR 250 MG TABLET PO SCH (08:28)
[2017-04-15] MEDS: TAMSULOSIN 0.4 MG CAPSULE PO SCH (08:28)
[2017-04-15] MEDS: FERROUS SULFATE 325 MG TABLET PO SCH ×2 (08:28→16:40)
[2017-04-15] MEDS: FAMOTIDINE 20 MG TABLET PO SCH (08:28)
[2017-04-15] MEDS: ENOXAPARIN 40 MG/0.4 ML SYRINGE SUBQ SCH (08:28)
[2017-04-15] MEDS: ASPIRIN EC 81 MG TABLET PO SCH (08:28)
[2017-04-15 08:55] LABS: IMMATURE RETIC FRACTION 0.4; RED BLOOD COUNT 2.91 10^6/uL (4.70-6.10)
[2017-04-15] MEDS ORDERED: FAMOTIDINE 20 MG TABLET PO SCH (09:00)
[2017-04-15] MEDS ORDERED: VANCOMYCIN INJ 1 GM in SODIUM CHLORIDE 0.9% 250 ML IV SCH ×2 (09:00→10:00)
[2017-04-15] MEDS ORDERED: POLYETHYLENE GLYCOL 3350 17 GM PACKET PO SCH (09:00)
[2017-04-15 09:12] LABS: IRON 7 ug/dL (45-182); TOTAL IRON BINDING CAPACITY 214 ug/dL (250-450); TRANSFERRIN 153 mg/dL (180-329)
[2017-04-15 09:29] LABS: FERRITIN 471.3 ng/mL (23.9-336.2)
[2017-04-15] MEDS: buPROPion XL 150 MG TABLET PO SCH (09:59)
--- NOTE | 2017-04-15 15:16 | PROVIDER PROGRESS NOTE ---
Subjective - Prog Note Date Prog Note Date: 04/15/17 - Subjective Pt reports feeling: Improved, No change Subjective: pt state he feel better for breathing. No fever, chill, chest pain. Current Medications - Current Medications Current Medications: Active Medications Acetaminophen (Tylenol) 650 mg PO Q4HR PRN PRN Reason: Pain 1 to 4 Acetaminophen/Hydrocodone Bitart ([place] 10 Mg/325 Mg) 1 tab PO Q4HR PRN PRN Reason: Pain 8 to 10 Amiodarone HCl ([place]) 200 mg PO BID [facility] Last Admin: 04/15/17 08:28 Dose: 200 mg Aspirin (Ecotrin) 81 mg PO DAILY [facility] Last Admin: 04/15/17 08:28 Dose: 81 mg Bupropion HCl (Wellbutrin Xl) 450 mg PO DAILY [facility] Last Admin: 04/15/17 09:59 Dose: 450 mg Digoxin (Lanoxin) 125 mcg PO DAILY [facility] Last Admin: 04/15/17 08:28 Dose: 125 mcg Divalproex Sodium (Depakote Dr) 1,000 mg PO DAILY [facility] Last Admin: 04/15/17 08:28 Dose: 1,000 mg Enoxaparin Sodium (Lovenox) 40 mg SUBQ DAILY [facility] Last Admin: 04/15/17 08:28 Dose: 40 mg Escitalopram Oxalate (Lexapro) 10 mg PO DAILY [facility] Last Admin: 04/15/17 08:28 Dose: 10 mg Famotidine (Pepcid) 20 mg PO DAILY [facility] Last Admin: 04/15/17 08:28 Dose: 20 mg Ferrous Sulfate (Feosol) 325 mg PO BIDWM [facility] Last Admin: 04/15/17 08:28 Dose: 325 mg Sodium Chloride (Normal Saline 0.9%) 1,000 mls @ 75 mls/hr IV .[id number] [facility] Last Admin: 04/15/17 03:12 Dose: 75 mls/hr Vancomycin HCl 1 gm/ Sodium (Chloride) 250 mls @ 167.007 mls/hr IV Q12H [facility] Piperacillin Sod/Tazobactam (Sod 3.375 gm/ Sodium Chloride) 100 mls @ 200 mls/ hr IV Q6H [facility] Loperamide HCl (Imodium) 2 mg PO DAILY PRN PRN Reason: Diarrhea Polyethylene Glycol (Miralax) 17 gm PO DAILY [facility] Last Admin: 04/15/17 08:28 Dose: 17 gm Senna (Senokot) 8.6 mg PO DAILY [facility] Last Admin: 04/15/17 08:28 Dose: 8.6 mg Sodium Chloride (Normal Saline Flush 0.9%) 10 ml IVP PRN PRN PRN Reason: NEEDED PER PROVIDER ORDERS Sodium Chloride (Normal Saline Flush 0.9%) 10 ml IVP Q8HR [facility] Last Admin: 04/15/17 13:34 Dose: Not Given Tamsulosin HCl (Flomax) 0.4 mg PO DAILY [facility] Last Admin: 04/15/17 08:28 Dose: 0.4 mg Temazepam (Restoril) 15 mg PO QPM PRN PRN Reason: Insomnia Divalproex Sodium [Depakote] 1,000 mg PO DAILY 11/23/16 Escitalopram [Lexapro] 10 mg PO DAILY 11/23/16 Famotidine [Pepcid] 20 mg PO DAILY 11/23/16 Tamsulosin [Flomax] 0.4 mg PO DAILY 11/23/16 buPROPion [Wellbutrin Xl] 150 mg PO DAILY 11/23/16 Aspirin [Aspirin EC] 81 mg PO DAILY 12/01/16 Amiodarone HCl 200 mg PO BID 04/14/17 Digoxin [Digoxin] 125 mcg PO DAILY 04/14/17 Loperamide [Imodium] 2 mg PO DAILY PRN 04/14/17 Polyethylene Glycol 3350 [Miralax] 1 pkt PO DAILY 04/14/17 Sennosides [Senna] 1 tab PO DAILY 04/14/17 Objective - Vital Signs/Intake & Output Reviewed Vital Signs: Yes Vital Signs: Vital Signs x48h Temp Pulse Resp BP Pulse Ox 04/15/17 12:07 37.4 C 86 16 125/61 94 04/15/17 08:26 37.2 C 88 16 117/53 L 94 Intake & Output: Intake & Output 04/12/17 04/13/17 04/14/17 04/15/17 23:59 23:59 23:59 23:59 Intake Total 100 1766.25 Balance 100 1766.25 - Objective General Appearance: positive: No acute distress, Alert. negative: Lethargic Eyes Bilateral: positive: Normal inspection, PERRL, No lid inflammation, Conjunctivae nml ENT: positive: ENT inspection nml, Pharynx nml, No signs of dehydration. negative: Purulent nasal drainage, Pharyngeal erythema, Oral lesions, Dry mucous membranes Neck: positive: Nml inspection, Thyroid nml, No JVD. negative: Trachea midline , Thyromegaly, Lymphadenopathy (R), Lymphadenopathy (L), Stiff neck, Carotid bruit, Swelling/bruising, Tracheal deviation Respiratory: positive: Chest non-tender, No respiratory distress, Rhonchi. negative: Wheezes, Rales Cardiovascular: positive: Regular rate & rhythm, No murmur, No gallop. negative : Irregularly irregular, Extrasystoles, Tachycardia, Bradycardia, Systolic murmur, Diastolic murmur Peripheral Pulses: 2+ Radial (R), 2+ Radial (L), 2+ Dorsalis pedis (R), 2+ Dorsalis pedis (L) Abdomen: positive: Non-tender, No organomegaly, Nml bowel sounds, No distention. negative: Tenderness, Guarding, Rebound Back: positive: Nml inspection. negative: CVA tenderness (R), CVA tenderness (L ) Skin: positive: Color nml, No rash, Warm, Dry. negative: Cyanosis, Diaphoresis , Pallor, Puncture wound Extremities: positive: Non-tender, Full ROM, Nml appearance. negative: Calf tenderness, Joint swelling, Helio's sign/cords Neurologic/Psychiatric: positive: Oriented x3, Sensation nml. negative: Sensory loss, Facial droop, Slurred/abnml speech, Depressed mood/affect - Lab Results Fish Bones: 04/15/17 05:54 04/15/17 05:54 Other Labs: Lab Results x24hrs 04/15/17 04/15/17 04/15/17 Range/Units 08:42 08:42 08:42 WBC (4.8-10.8) x10^3/uL RBC (4.70-6.10) 10^6/uL Hgb (14.0-18.0) g/dL Hct (42.0-52.0) % MCV (80.0-94.0) fL MCH (27.0-31.0) pg MCHC (32.0-36.0) g/dL RDW (12.0-15.0) % Plt Count (130-450) 10^3/uL MPV (7.4-11.4) fL Reticulocyte % (Auto) (0.5-2.3) % Neut # (1.5-6.6) 10^3/uL Lymph # (1.5-3.5) 10^3/uL Kendall # (0.0-1.0) 10^3/uL Eos # (0.0-0.7) 10^3/uL Baso # (0.0-0.1) 10^3/uL Absolute Nucleated RBC x10^3/uL Nucleated RBC % /100WBC Absolute Retic (0.020-0.110) 10^6/uL Sodium (135-145) mmol/L Potassium (3.5-5.0) mmol/L Chloride (101-111) mmol/L Carbon Dioxide (21-32) mmol/L Anion Gap (6-13) BUN (6-20) mg/dL Creatinine (0.6-1.2) mg/dL Estimated GFR (MDRD) (>89) Glucose (70-100) mg/dL Lactic Acid (0.5-2.2) mmol/L Calcium (8.5-10.3) mg/dL Iron 7 L (45-182) ug/dL TIBC 214 L (250-450) ug/dL % Saturation 3 L (20-50) % Transferrin 153 L (180-329) mg/dL Ferritin 471.3 H (23.9-336.2) ng/mL Total Bilirubin (0.2-1.0) mg/dL AST (10-42) IU/L ALT (10-60) IU/L Alkaline Phosphatase (42-121) IU/L Lactate Dehydrogenase 144 (91-225) IU/L Total Protein (6.7-8.2) g/dL Albumin (3.2-5.5) g/dL Globulin (2.1-4.2) g/dL Albumin/Globulin Ratio (1.0-2.2) Vitamin B12 560 (180-914) pg/mL 04/15/17 04/15/17 04/15/17 Range/Units 08:42 05:54 05:54 WBC (4.8-10.8) x10^3/uL RBC 2.91 L (4.70-6.10) 10^6/uL Hgb (14.0-18.0) g/dL Hct (42.0-52.0) % MCV (80.0-94.0) fL MCH (27.0-31.0) pg MCHC (32.0-36.0) g/dL RDW (12.0-15.0) % Plt Count (130-450) 10^3/uL MPV (7.4-11.4) fL Reticulocyte % (Auto) 0.96 (0.5-2.3) % Neut # (1.5-6.6) 10^3/uL Lymph # (1.5-3.5) 10^3/uL Kendall # (0.0-1.0) 10^3/uL Eos # (0.0-0.7) 10^3/uL Baso # (0.0-0.1) 10^3/uL Absolute Nucleated RBC x10^3/uL Nucleated RBC % /100WBC Absolute Retic 0.028 (0.020-0.110) 10^6/uL Sodium 129 L (135-145) mmol/L Potassium 3.8 (3.5-5.0) mmol/L Chloride 97 L (101-111) mmol/L Carbon Dioxide 23 (21-32) mmol/L Anion Gap 9.0 (6-13) BUN 18 (6-20) mg/dL Creatinine 0.9 (0.6-1.2) mg/dL Estimated GFR (MDRD) 81 L (>89) Glucose 78 (70-100) mg/dL Lactic Acid 0.5 (0.5-2.2) mmol/L Calcium 8.1 L (8.5-10.3) mg/dL Iron (45-182) ug/dL TIBC (250-450) ug/dL % Saturation (20-50) % Transferrin (180-329) mg/dL Ferritin (23.9-336.2) ng/mL Total Bilirubin 0.7 (0.2-1.0) mg/dL AST 21 (10-42) IU/L ALT 11 (10-60) IU/L Alkaline Phosphatase 56 (42-121) IU/L Lactate Dehydrogenase (91-225) IU/L Total Protein 6.8 (6.7-8.2) g/dL Albumin 2.1 L (3.2-5.5) g/dL Globulin 4.7 H (2.1-4.2) g/dL Albumin/Globulin Ratio 0.4 L (1.0-2.2) Vitamin B12 (180-914) pg/mL 04/15/17 Range/Units 05:54 WBC 5.4 (4.8-10.8) x10^3/uL RBC 2.85 L (4.70-6.10) 10^6/uL Hgb 8.5 L (14.0-18.0) g/dL Hct 25.4 L (42.0-52.0) % MCV 89.1 (80.0-94.0) fL MCH 29.9 (27.0-31.0) pg MCHC 33.6 (32.0-36.0) g/dL RDW 15.3 H (12.0-15.0) % Plt Count 171 (130-450) 10^3/uL MPV 6.8 L (7.4-11.4) fL Reticulocyte % (Auto) (0.5-2.3) % Neut # 3.2 (1.5-6.6) 10^3/uL Lymph # 0.8 L (1.5-3.5) 10^3/uL Kendall # 1.3 H (0.0-1.0) 10^3/uL Eos # 0.0 (0.0-0.7) 10^3/uL Baso # 0.0 (0.0-0.1) 10^3/uL Absolute Nucleated RBC 0.00 x10^3/uL Nucleated RBC % 0.0 /100WBC Absolute Retic (0.020-0.110) 10^6/uL Sodium (135-145) mmol/L Potassium (3.5-5.0) mmol/L Chloride (101-111) mmol/L Carbon Dioxide (21-32) mmol/L Anion Gap (6-13) BUN (6-20) mg/dL Creatinine (0.6-1.2) mg/dL Estimated GFR (MDRD) (>89) Glucose (70-100) mg/dL Lactic Acid (0.5-2.2) mmol/L Calcium (8.5-10.3) mg/dL Iron (45-182) ug/dL TIBC (250-450) ug/dL % Saturation (20-50) % Transferrin (180-329) mg/dL Ferritin (23.9-336.2) ng/mL Total Bilirubin (0.2-1.0) mg/dL AST (10-42) IU/L ALT (10-60) IU/L Alkaline Phosphatase (42-121) IU/L Lactate Dehydrogenase (91-225) IU/L Total Protein (6.7-8.2) g/dL Albumin (3.2-5.5) g/dL Globulin (2.1-4.2) g/dL Albumin/Globulin Ratio (1.0-2.2) Vitamin B12 (180-914) pg/mL Assessment/Plan - Problem List (1) Pneumonia Impression: CXR reveals right pleural effusion mild to moderate, and infiltration. Pt failed from outpt antibiotics Zosyn vancomycin follow up blood and sputum culture daily lab and vital monitor Qualifiers: Pneumonia type: due to unspecified organism Laterality: right Lung location: lower lobe of lung Qualified Code(s): J18.1 - Lobar pneumonia, unspecified organism (2) HTN (hypertension) Impression: stable, continue home meds vital monitor (3) Atrial fibrillation Impression: stable, continue home meds Qualifiers: Atrial fibrillation type: chronic Qualified Code(s): I48.2 - Chronic atrial fibrillation (4) Dementia Impression: stable, without behaviour disturbance. continue home regime daily lab and vital monitor (5) BPH (benign prostatic hyperplasia) Impression: stable, continue Flomax (6) Bipolar 1 disorder Impression: stable, continue home meds (7) Weakness Impression: pt is reported to walk with walker, PT and OT for evaluation and treatment
[2017-04-15] MEDS: PIPERACILLIN/TAZOBACTAM 3.375 GM in SODIUM CHLORIDE 0.9% MINIBAG 100 ML IV SCH ×2 (17:14→23:59)
[2017-04-15] MEDS: VANCOMYCIN INJ 1 GM in SODIUM CHLORIDE 0.9% 250 ML IV SCH (21:25)
[2017-04-16] MEDS: SODIUM CHLORIDE FLUSH 0.9% 10 ML SYRINGE IVP SCH ×3 (05:27→20:38)
[2017-04-16] MEDS: PIPERACILLIN/TAZOBACTAM 3.375 GM in SODIUM CHLORIDE 0.9% MINIBAG 100 ML IV SCH ×3 (05:27→18:59)
[2017-04-16 05:57] LABS: BASOPHILS % (AUTO) 0.3 %; EOSINOPHILS % (AUTO) 0.7 %; HCT - HEMATOCRIT 22.1 % (42.0-52.0); HGB - HEMOGLOBIN 7.5 g/dL (14.0-18.0); LYMPHOCYTES # (AUTO) 0.8 10^3/uL (1.5-3.5); LYMPHOCYTES % (AUTO) 19.7 %; MEAN CORPUSCULAR HEMOGLOBIN 30.3 pg (27.0-31.0); MEAN CORPUSCULAR HGB CONC 33.9 g/dL (32.0-36.0); MEAN CORPUSCULAR VOLUME 89.5 fL (80.0-94.0); MEAN PLATELET VOLUME 6.8 fL (7.4-11.4); MONOCYTES # (AUTO) 0.9 10^3/uL (0.0-1.0); MONOCYTES % (AUTO) 23.2 %; NEUTROPHILS # (AUTO) 2.3 10^3/uL (1.5-6.6); NEUTROPHILS % (AUTO) 56.1 %; NUCLEATED RED BLOOD CELLS AUTO 0.1 /100WBC; RED BLOOD COUNT 2.47 10^6/uL (4.70-6.10)
[2017-04-16 06:11] LABS: ALBUMIN/GLOBULIN RATIO 0.4 (1.0-2.2); BILIRUBIN,TOTAL 0.5 mg/dL (0.2-1.0); CREATININE 0.9 mg/dL (0.6-1.2); MAGNESIUM 1.5 mg/dL (1.7-2.8); POTASSIUM 3.7 mmol/L (3.5-5.0); TOTAL PROTEIN 6.2 g/dL (6.7-8.2)
[2017-04-16] MEDS ORDERED: MAGNESIUM SULFATE 2 GRAM 2 GM/50 ML BAG IV SCH (08:00)
[2017-04-16] MEDS: ESCITALOPRAM 10 MG TABLET PO SCH (09:50)
[2017-04-16] MEDS: DIVALPROEX DR 250 MG TABLET PO SCH (09:50)
[2017-04-16] MEDS: ASPIRIN EC 81 MG TABLET PO SCH (09:51)
[2017-04-16] MEDS: ENOXAPARIN 40 MG/0.4 ML SYRINGE SUBQ SCH (09:51)
[2017-04-16] MEDS: buPROPion XL 150 MG TABLET PO SCH (09:51)
[2017-04-16] MEDS: AMIODARONE 200 MG TABLET PO SCH ×2 (09:51→20:45)
[2017-04-16] MEDS: FAMOTIDINE 20 MG TABLET PO SCH (09:51)
[2017-04-16] MEDS: SENNA 8.6 MG TABLET PO SCH (09:51)
[2017-04-16] MEDS: DIGOXIN 125 MCG TABLET PO SCH (09:51)
[2017-04-16] MEDS: FERROUS SULFATE 325 MG TABLET PO SCH ×2 (09:51→17:41)
[2017-04-16] MEDS: POLYETHYLENE GLYCOL 3350 17 GM PACKET PO SCH (10:04)
[2017-04-16] MEDS: TAMSULOSIN 0.4 MG CAPSULE PO SCH (10:04)
[2017-04-16] MEDS: VANCOMYCIN INJ 1 GM in SODIUM CHLORIDE 0.9% 250 ML IV SCH ×2 (10:48→22:23)
--- NOTE | 2017-04-16 13:18 | PROVIDER PROGRESS NOTE ---
Subjective - Prog Note Date Prog Note Date: 04/16/17 - Subjective Pt reports feeling: Improved Subjective: pt report he feel breathing better, still feel weakness. pt denies GI bleeding, chest pain, abdominal pain, headache. Pt's HGB continue to drop, pt is on Iron. Discuss with pt for possible transfusion of blood. Pt refused to have blood transfusion today, may have tomorrow if HGB continue drop Current Medications - Current Medications Current Medications: Active Medications Acetaminophen (Tylenol) 650 mg PO Q4HR PRN PRN Reason: Pain 1 to 4 Last Admin: 04/16/17 10:15 Dose: 650 mg Acetaminophen/Hydrocodone Bitart ([place] 10 Mg/325 Mg) 1 tab PO Q4HR PRN PRN Reason: Pain 8 to 10 Amiodarone HCl (Pacerone) 200 mg PO BID [facility] Last Admin: 04/16/17 09:51 Dose: 200 mg Aspirin (Ecotrin) 81 mg PO DAILY [facility] Last Admin: 04/16/17 09:51 Dose: 81 mg Bupropion HCl (Wellbutrin Xl) 450 mg PO DAILY [facility] Last Admin: 04/16/17 09:51 Dose: 450 mg Digoxin (Lanoxin) 125 mcg PO DAILY [facility] Last Admin: 04/16/17 09:51 Dose: 125 mcg Divalproex Sodium (Depakote Dr) 1,000 mg PO DAILY [facility] Last Admin: 04/16/17 09:50 Dose: 1,000 mg Enoxaparin Sodium (Lovenox) 40 mg SUBQ DAILY [facility] Last Admin: 04/16/17 09:51 Dose: 40 mg Escitalopram Oxalate (Lexapro) 10 mg PO DAILY [facility] Last Admin: 04/16/17 09:50 Dose: 10 mg Famotidine (Pepcid) 20 mg PO DAILY [facility] Last Admin: 04/16/17 09:51 Dose: 20 mg Ferrous Sulfate (Feosol) 325 mg PO BIDWM [facility] Last Admin: 04/16/17 09:51 Dose: 325 mg Sodium Chloride (Normal Saline 0.9%) 1,000 mls @ 75 mls/hr IV .[id number] [facility] Last Infusion: 04/16/17 09:50 Dose: 0 mls/hr Vancomycin HCl 1 gm/ Sodium (Chloride) 250 mls @ 167.007 mls/hr IV Q12H [facility] Last Infusion: 04/16/17 12:20 Dose: Infused Piperacillin Sod/Tazobactam (Sod 3.375 gm/ Sodium Chloride) 100 mls @ 200 mls/ hr IV Q6H [facility] Last Admin: 04/16/17 12:49 Dose: 200 mls/hr Loperamide HCl (Imodium) 2 mg PO DAILY PRN PRN Reason: Diarrhea Polyethylene Glycol (Miralax) 17 gm PO DAILY [facility] Last Admin: 04/16/17 10:04 Dose: 17 gm Senna (Senokot) 8.6 mg PO DAILY [facility] Last Admin: 04/16/17 09:51 Dose: 8.6 mg Sodium Chloride (Normal Saline Flush 0.9%) 10 ml IVP PRN PRN PRN Reason: NEEDED PER PROVIDER ORDERS Sodium Chloride (Normal Saline Flush 0.9%) 10 ml IVP Q8HR [facility] Last Admin: 04/16/17 07:30 Dose: Not Given Tamsulosin HCl (Flomax) 0.4 mg PO DAILY [facility] Last Admin: 04/16/17 10:04 Dose: 0.4 mg Temazepam (Restoril) 15 mg PO QPM PRN PRN Reason: Insomnia Divalproex Sodium [Depakote] 1,000 mg PO DAILY 11/23/16 Escitalopram [Lexapro] 10 mg PO DAILY 11/23/16 Famotidine [Pepcid] 20 mg PO DAILY 11/23/16 Tamsulosin [Flomax] 0.4 mg PO DAILY 11/23/16 buPROPion [Wellbutrin Xl] 150 mg PO DAILY 11/23/16 Aspirin [Aspirin EC] 81 mg PO DAILY 12/01/16 Amiodarone HCl 200 mg PO BID 04/14/17 Digoxin [Digoxin] 125 mcg PO DAILY 04/14/17 Loperamide [Imodium] 2 mg PO DAILY PRN 04/14/17 Polyethylene Glycol 3350 [Miralax] 1 pkt PO DAILY 04/14/17 Sennosides [Senna] 1 tab PO DAILY 04/14/17 Objective - Vital Signs/Intake & Output Reviewed Vital Signs: Yes Vital Signs: Vital Signs x48h Temp Pulse Resp BP Pulse Ox 04/16/17 12:48 93 04/16/17 09:00 37.4 C 84 19 127/64 95 Intake & Output: Intake & Output 04/13/17 04/14/17 04/15/17 04/16/17 23:59 23:59 23:59 23:59 Intake Total 100 3156.25 3751.25 Balance 100 3156.25 3751.25 - Objective General Appearance: positive: No acute distress, Alert. negative: Lethargic Eyes Bilateral: positive: Normal inspection, PERRL, No lid inflammation, Conjunctivae nml ENT: positive: ENT inspection nml, Pharynx nml, No signs of dehydration. negative: Purulent nasal drainage, Pharyngeal erythema, Oral lesions, Dry mucous membranes Neck: positive: Nml inspection, Thyroid nml, No JVD, Trachea midline. negative : Thyromegaly, Stiff neck, Carotid bruit, Swelling/bruising, Tracheal deviation Respiratory: positive: Chest non-tender, No respiratory distress, Breath sounds nml. negative: Wheezes, Rales, Rhonchi Cardiovascular: positive: Regular rate & rhythm, No murmur, No gallop. negative : Irregularly irregular, Extrasystoles, Tachycardia, Bradycardia, Systolic murmur, Diastolic murmur Peripheral Pulses: 2+ Radial (R), 2+ Radial (L), 2+ Dorsalis pedis (R), 2+ Dorsalis pedis (L) Abdomen: positive: Non-tender, No organomegaly, Nml bowel sounds, No distention. negative: Tenderness, Guarding, Rebound Back: positive: Nml inspection. negative: CVA tenderness (R), CVA tenderness (L ) Skin: positive: Color nml, No rash, Warm, Dry. negative: Cyanosis, Diaphoresis , Pallor, Skin rash Extremities: positive: Non-tender, Nml appearance. negative: Calf tenderness, Joint swelling, Helio's sign/cords Neurologic/Psychiatric: positive: Oriented x3, Sensation nml, Mood/affect nml. negative: Sensory loss, Facial droop, Slurred/abnml speech, Depressed mood/ affect - Lab Results Fish Bones: 04/16/17 05:48 04/16/17 05:48 Other Labs: Lab Results x24hrs 04/16/17 04/16/17 04/16/17 Range/Units 08:15 08:15 05:48 WBC (4.8-10.8) x10^3/uL RBC (4.70-6.10) 10^6/uL Hgb (14.0-18.0) g/dL Hct (42.0-52.0) % MCV (80.0-94.0) fL MCH (27.0-31.0) pg MCHC (32.0-36.0) g/dL RDW (12.0-15.0) % Plt Count (130-450) 10^3/uL MPV (7.4-11.4) fL Neut # (1.5-6.6) 10^3/uL Lymph # (1.5-3.5) 10^3/uL [place] # (0.0-1.0) 10^3/uL Eos # (0.0-0.7) 10^3/uL Baso # (0.0-0.1) 10^3/uL Absolute Nucleated RBC x10^3/uL Nucleated RBC % /100WBC Sodium (135-145) mmol/L Potassium (3.5-5.0) mmol/L Chloride (101-111) mmol/L Carbon Dioxide (21-32) mmol/L Anion Gap (6-13) BUN (6-20) mg/dL Creatinine (0.6-1.2) mg/dL Estimated GFR (MDRD) (>89) Glucose (70-100) mg/dL Calcium (8.5-10.3) mg/dL Magnesium (1.7-2.8) mg/dL Total Bilirubin (0.2-1.0) mg/dL AST (10-42) IU/L ALT (10-60) IU/L Alkaline Phosphatase (42-121) IU/L Total Protein (6.7-8.2) g/dL Albumin (3.2-5.5) g/dL Globulin (2.1-4.2) g/dL Albumin/Globulin Ratio (1.0-2.2) Last Dose Date 04/15/17 Last Dose Time 08 Valproic Acid 23.5 ug/mL Blood Type B POSITIVE Blood Type Recheck B POSITIVE Antibody Screen NEGATIVE Crossmatch IS Only See Detail 04/16/17 04/16/17 Range/Units 05:48 05:48 WBC 4.0 L (4.8-10.8) x10^3/uL RBC 2.47 L (4.70-6.10) 10^6/uL Hgb 7.5 L (14.0-18.0) g/dL Hct 22.1 L (42.0-52.0) % MCV 89.5 (80.0-94.0) fL MCH 30.3 (27.0-31.0) pg MCHC 33.9 (32.0-36.0) g/dL RDW 15.0 (12.0-15.0) % Plt Count 156 (130-450) 10^3/uL MPV 6.8 L (7.4-11.4) fL Neut # 2.3 (1.5-6.6) 10^3/uL Lymph # 0.8 L (1.5-3.5) 10^3/uL [place] # 0.9 (0.0-1.0) 10^3/uL Eos # 0.0 (0.0-0.7) 10^3/uL Baso # 0.0 (0.0-0.1) 10^3/uL Absolute Nucleated RBC 0.00 x10^3/uL Nucleated RBC % 0.1 /100WBC Sodium 132 L (135-145) mmol/L Potassium 3.7 (3.5-5.0) mmol/L Chloride 100 L (101-111) mmol/L Carbon Dioxide 24 (21-32) mmol/L Anion Gap 8.0 (6-13) BUN 19 (6-20) mg/dL Creatinine 0.9 (0.6-1.2) mg/dL Estimated GFR (MDRD) 81 L (>89) Glucose 83 (70-100) mg/dL Calcium 8.0 L (8.5-10.3) mg/dL Magnesium 1.5 L (1.7-2.8) mg/dL Total Bilirubin 0.5 (0.2-1.0) mg/dL AST 20 (10-42) IU/L ALT 10 (10-60) IU/L Alkaline Phosphatase 50 (42-121) IU/L Total Protein 6.2 L (6.7-8.2) g/dL Albumin 1.9 L (3.2-5.5) g/dL Globulin 4.3 H (2.1-4.2) g/dL Albumin/Globulin Ratio 0.4 L (1.0-2.2) Last Dose Date Last Dose Time Valproic Acid ug/mL Blood Type Blood Type Recheck Antibody Screen Crossmatch IS Only Assessment/Plan - Problem List (1) Pneumonia Impression: Impression: pt report he feel better for breathing. SO2 is 93% on room air continue antibiotics preliminary blood culture negative, follow up CXR reveals right pleural effusion mild to moderate, and infiltration. Pt failed from outpt antibiotics Zosyn vancomycin follow up blood and sputum culture daily lab and vital monitor (2) HTN (hypertension) Impression: stable stable, continue home meds vital monitor (3) Atrial fibrillation Impression: stable, continue home meds (4) Dementia Impression: stable, without behaviour disturbance. continue home regime daily lab and vital monitor (5) BPH (benign prostatic hyperplasia) Impression: stable, continue Flomax (6) Bipolar 1 disorder Impression: stable, continue home meds (7) Weakness Impression: PT recommend pt to SNF for d/c planning. continue PT and OT treatment pt is reported to walk with walker, PT and OT for evaluation and treatment (8) anemia pt's HGB continue to drop to 7.5 today. Pt denies GI bleeding. pt refused to have blood transfusion today continue monitor pt's HGB, Iron study indicate possible Iron deficiency, add Iron daily will transfusion of blood to pt if HGB continue drop, and pt agree Qualifiers: Pneumonia type: due to unspecified organism Laterality: right Lung location: lower lobe of lung Qualified Code(s): J18.1 - Lobar pneumonia, unspecified organism (3) Atrial fibrillation Qualifiers: Atrial fibrillation type: chronic Qualified Code(s): I48.2 - Chronic atrial fibrillation
[2017-04-16] MEDS ORDERED: DOCUSATE SODIUM 250 MG CAPSULE PO ONE (17:32)
[2017-04-16] MEDS: SODIUM CHLORIDE 0.9% 1,000 ML IV SCH (17:41)
[2017-04-17] MEDS: SODIUM CHLORIDE 0.9% 1,000 ML IV SCH ×2 (00:36→09:59)
[2017-04-17] MEDS: PIPERACILLIN/TAZOBACTAM 3.375 GM in SODIUM CHLORIDE 0.9% MINIBAG 100 ML IV SCH ×4 (00:37→18:49)
[2017-04-17 05:49] LABS: BASOPHILS % (AUTO) 0.2 %; EOSINOPHILS # (AUTO) 0.1 10^3/uL (0.0-0.7); EOSINOPHILS % (AUTO) 2.3 %; HGB - HEMOGLOBIN 7.3 g/dL (14.0-18.0); LYMPHOCYTES # (AUTO) 0.9 10^3/uL (1.5-3.5); LYMPHOCYTES % (AUTO) 28.6 %; MEAN CORPUSCULAR HGB CONC 33.4 g/dL (32.0-36.0); MEAN CORPUSCULAR VOLUME 89.9 fL (80.0-94.0); MEAN PLATELET VOLUME 7.5 fL (7.4-11.4); MONOCYTES # (AUTO) 0.6 10^3/uL (0.0-1.0); MONOCYTES % (AUTO) 19.7 %; NEUTROPHILS # (AUTO) 1.5 10^3/uL (1.5-6.6); NEUTROPHILS % (AUTO) 49.2 %; NUCLEATED RED BLOOD CELLS AUTO 0.2 /100WBC; RED BLOOD COUNT 2.44 10^6/uL (4.70-6.10); RED CELL DISTRIBUTION WIDTH 14.6 % (12.0-15.0); UNCORRECTED WHITE BLOOD COUNT 3.1 x10^3/uL; WHITE BLOOD COUNT 3.1 x10^3/uL (4.8-10.8)
[2017-04-17 06:00] LABS: ALBUMIN/GLOBULIN RATIO 0.4 (1.0-2.2); BILIRUBIN,TOTAL 0.5 mg/dL (0.2-1.0); BUN - BLOOD UREA NITROGEN 13 mg/dL (6-20); CALCIUM 7.8 mg/dL (8.5-10.3); CARBON DIOXIDE - CO2 23 mmol/L (21-32); CHLORIDE 102 mmol/L (101-111); CREATININE 0.9 mg/dL (0.6-1.2); GFR - MDRD 81 (>89); GLUCOSE 73 mg/dL (70-100); POTASSIUM 3.7 mmol/L (3.5-5.0); SODIUM 131 mmol/L (135-145); TOTAL PROTEIN 6.2 g/dL (6.7-8.2)
[2017-04-17] MEDS: SODIUM CHLORIDE FLUSH 0.9% 10 ML SYRINGE IVP SCH ×3 (06:23→22:11)
[2017-04-17] MEDS ORDERED: CALCIUM GLUCONATE 1,000 MG in SODIUM CHLORIDE 0.9% 50 ML IV ONE ×2 (07:44→09:00)
[2017-04-17] MEDS: AMIODARONE 200 MG TABLET PO SCH ×2 (08:28→22:02)
[2017-04-17] MEDS: FERROUS SULFATE 325 MG TABLET PO SCH ×2 (08:28→18:49)
[2017-04-17] MEDS: buPROPion XL 150 MG TABLET PO SCH (08:31)
[2017-04-17] MEDS: DIGOXIN 125 MCG TABLET PO SCH (08:31)
[2017-04-17] MEDS: DIVALPROEX DR 250 MG TABLET PO SCH (08:31)
[2017-04-17] MEDS: ESCITALOPRAM 10 MG TABLET PO SCH (08:33)
[2017-04-17] MEDS: FAMOTIDINE 20 MG TABLET PO SCH (08:33)
[2017-04-17] MEDS: POLYETHYLENE GLYCOL 3350 17 GM PACKET PO SCH (08:33)
[2017-04-17] MEDS: SENNA 8.6 MG TABLET PO SCH (08:34)
[2017-04-17] MEDS: TAMSULOSIN 0.4 MG CAPSULE PO SCH (08:34)
[2017-04-17] MEDS: ASPIRIN EC 81 MG TABLET PO SCH (10:45)
[2017-04-17] MEDS: ENOXAPARIN 30 MG/0.3 ML SYRINGE SUBQ SCH (10:45)
[2017-04-17] MEDS: VANCOMYCIN INJ 1 GM in SODIUM CHLORIDE 0.9% 250 ML IV SCH (11:27)
--- NOTE | 2017-04-17 13:20 | PROVIDER PROGRESS NOTE ---
Subjective - Prog Note Date Prog Note Date: 04/17/17 - Subjective Pt reports feeling: Improved, No change Subjective: pt report he feel fine, and refused to have blood transfusion initially. After pt's family talked with pt, pt agree to have blood transfusion. pt's HGB is 7.3. pt denies any GI bleeding. Pt may see a animal caretaker supervisor as out-pt. Current Medications - Current Medications Current Medications: Active Medications Acetaminophen (Tylenol) 650 mg PO Q4HR PRN PRN Reason: Pain 1 to 4 Last Admin: 04/16/17 10:15 Dose: 650 mg Acetaminophen/Hydrocodone Bitart ([place] 10 Mg/325 Mg) 1 tab PO Q4HR PRN PRN Reason: Pain 8 to 10 Amiodarone HCl (Pacerone) 200 mg PO BID [facility] Last Admin: 04/17/17 08:28 Dose: 200 mg Aspirin (Ecotrin) 81 mg PO DAILY [facility] Last Admin: 04/17/17 10:45 Dose: 81 mg Bupropion HCl (Wellbutrin Xl) 450 mg PO DAILY [facility] Last Admin: 04/17/17 08:31 Dose: 450 mg Digoxin (Lanoxin) 125 mcg PO DAILY [facility] Last Admin: 04/17/17 08:31 Dose: 125 mcg Divalproex Sodium (Depakote Dr) 1,000 mg PO DAILY [facility] Last Admin: 04/17/17 08:31 Dose: 1,000 mg Enoxaparin Sodium (Lovenox) 30 mg SUBQ DAILY [facility] Last Admin: 04/17/17 10:45 Dose: 30 mg Escitalopram Oxalate (Lexapro) 10 mg PO DAILY [facility] Last Admin: 04/17/17 08:33 Dose: 10 mg Famotidine (Pepcid) 20 mg PO DAILY [facility] Last Admin: 04/17/17 08:33 Dose: 20 mg Ferrous Sulfate (Feosol) 325 mg PO BIDWM [facility] Last Admin: 04/17/17 08:28 Dose: 325 mg Sodium Chloride (Normal Saline 0.9%) 1,000 mls @ 75 mls/hr IV .[id number] [facility] Last Infusion: 04/17/17 11:27 Dose: 0 mls/hr Vancomycin HCl 1 gm/ Sodium (Chloride) 250 mls @ 167.007 mls/hr IV Q12H [facility] Last Admin: 04/17/17 11:27 Dose: 167 mls/hr Piperacillin Sod/Tazobactam (Sod 3.375 gm/ Sodium Chloride) 100 mls @ 200 mls/ hr IV Q6H [facility] Last Admin: 04/17/17 13:09 Dose: 200 mls/hr Loperamide HCl (Imodium) 2 mg PO DAILY PRN PRN Reason: Diarrhea Polyethylene Glycol (Miralax) 17 gm PO DAILY [facility] Last Admin: 04/17/17 08:33 Dose: 17 gm Senna (Senokot) 8.6 mg PO DAILY [facility] Last Admin: 04/17/17 08:34 Dose: 8.6 mg Sodium Chloride (Normal Saline Flush 0.9%) 10 ml IVP PRN PRN PRN Reason: NEEDED PER PROVIDER ORDERS Sodium Chloride (Normal Saline Flush 0.9%) 10 ml IVP Q8HR [facility] Last Admin: 04/17/17 06:23 Dose: Not Given Tamsulosin HCl (Flomax) 0.4 mg PO DAILY [facility] Last Admin: 04/17/17 08:34 Dose: 0.4 mg Temazepam (Restoril) 15 mg PO QPM PRN PRN Reason: Insomnia Divalproex Sodium [Depakote] 1,000 mg PO DAILY 11/23/16 Escitalopram [Lexapro] 10 mg PO DAILY 11/23/16 Famotidine [Pepcid] 20 mg PO DAILY 11/23/16 Tamsulosin [Flomax] 0.4 mg PO DAILY 11/23/16 buPROPion [Wellbutrin Xl] 150 mg PO DAILY 11/23/16 Aspirin [Aspirin EC] 81 mg PO DAILY 12/01/16 Amiodarone HCl 200 mg PO BID 04/14/17 Digoxin [Digoxin] 125 mcg PO DAILY 04/14/17 Loperamide [Imodium] 2 mg PO DAILY PRN 04/14/17 Polyethylene Glycol 3350 [Miralax] 1 pkt PO DAILY 04/14/17 Sennosides [Senna] 1 tab PO DAILY 04/14/17 Objective - Vital Signs/Intake & Output Reviewed Vital Signs: Yes Vital Signs: Vital Signs x48h Temp Pulse Resp BP Pulse Ox 04/17/17 12:10 36.6 C 80 16 115/60 97 04/17/17 08:02 37.4 C 87 20 137/78 H 95 Intake & Output: Intake & Output 04/14/17 04/15/17 04/16/17 04/17/17 23:59 23:59 23:59 23:59 Intake Total 100 3156.25 4570.00 1585.00 Balance 100 3156.25 4570.00 1585.00 - Objective General Appearance: positive: No acute distress, Alert. negative: Lethargic Eyes Bilateral: positive: Normal inspection, PERRL, No lid inflammation, Conjunctivae nml ENT: positive: ENT inspection nml, Pharynx nml, No signs of dehydration. negative: Purulent nasal drainage, Pharyngeal erythema, Oral lesions Neck: positive: Nml inspection, Thyroid nml, No JVD, Trachea midline. negative : Thyromegaly, Lymphadenopathy (R), Lymphadenopathy (L), Stiff neck, Carotid bruit, Swelling/bruising, Tracheal deviation Respiratory: positive: Chest non-tender, No respiratory distress, Breath sounds nml. negative: Wheezes, Rales, Rhonchi Cardiovascular: positive: Regular rate & rhythm, No murmur, No gallop. negative : Irregularly irregular, Extrasystoles, Tachycardia, Bradycardia, Systolic murmur, Diastolic murmur Peripheral Pulses: 2+ Radial (R), 2+ Radial (L), 2+ Dorsalis pedis (R), 2+ Dorsalis pedis (L) Abdomen: positive: Non-tender, No organomegaly, Nml bowel sounds, No distention. negative: Tenderness, Guarding, Rebound Back: positive: Nml inspection. negative: CVA tenderness (R), CVA tenderness (L ) Skin: positive: Color nml, No rash, Warm, Dry. negative: Cyanosis, Diaphoresis , Pallor, Skin rash Extremities: positive: Non-tender, Full ROM, Nml appearance. negative: Pedal edema, Joint swelling, Helio's sign/cords Neurologic/Psychiatric: positive: Oriented x3, Sensation nml, Mood/affect nml. negative: Sensory loss, Facial droop, Slurred/abnml speech, Depressed mood/ affect - Lab Results Fish Bones: 04/17/17 04:44 04/17/17 04:44 Other Labs: Lab Results x24hrs 04/17/17 04/17/17 04/17/17 Range/Units 10:06 04:44 04:44 WBC 3.1 L (4.8-10.8) x10^3/uL RBC 2.44 L (4.70-6.10) 10^6/uL Hgb 7.3 L (14.0-18.0) g/dL Hct 22.0 L (42.0-52.0) % MCV 89.9 (80.0-94.0) fL MCH 30.0 (27.0-31.0) pg MCHC 33.4 (32.0-36.0) g/dL RDW 14.6 (12.0-15.0) % Plt Count 166 (130-450) 10^3/uL MPV 7.5 (7.4-11.4) fL Neut # 1.5 (1.5-6.6) 10^3/uL Lymph # 0.9 L (1.5-3.5) 10^3/uL [place] # 0.6 (0.0-1.0) 10^3/uL Eos # 0.1 (0.0-0.7) 10^3/uL Baso # 0.0 (0.0-0.1) 10^3/uL Absolute Nucleated RBC 0.01 x10^3/uL Nucleated RBC % 0.2 /100WBC Sodium 131 L (135-145) mmol/L Potassium 3.7 (3.5-5.0) mmol/L Chloride 102 (101-111) mmol/L Carbon Dioxide 23 (21-32) mmol/L Anion Gap 6.0 (6-13) BUN 13 (6-20) mg/dL Creatinine 0.9 (0.6-1.2) mg/dL Estimated GFR (MDRD) 81 L (>89) Glucose 73 (70-100) mg/dL Calcium 7.8 L (8.5-10.3) mg/dL Total Bilirubin 0.5 (0.2-1.0) mg/dL AST 18 (10-42) IU/L ALT < 10 L (10-60) IU/L Alkaline Phosphatase 53 (42-121) IU/L Total Protein 6.2 L (6.7-8.2) g/dL Albumin 1.8 L (3.2-5.5) g/dL Globulin 4.4 H (2.1-4.2) g/dL Albumin/Globulin Ratio 0.4 L (1.0-2.2) Last Dose Date 04/15/2017 Last Dose Time 2200 Vancomycin Trough 13.6 (5.0-15.0) ug/mL Assessment/Plan - Problem List (1) Pneumonia Impression: Impression: pt report he feel fine for breathing with continue current treatment CXR reveals right pleural effusion mild to moderate, and infiltration. Pt failed from outpt antibiotics Zosyn vancomycin follow up blood and sputum culture daily lab and vital monitor (2) HTN (hypertension) Impression: stable stable, continue home meds vital monitor (3) Atrial fibrillation Impression: stable, continue monitor (4) Dementia Impression: stable, without behaviour disturbance. continue monitor and home regime daily lab and vital monitor (5) BPH (benign prostatic hyperplasia) Impression: stable, continue Flomax (6) Bipolar 1 disorder Impression: stable, continue home meds (7) Weakness Impression: PT recommend pt to SNF for d/c planning. continue PT and OT treatment pt is reported to walk with walker, PT and OT for evaluation and treatment (8) anemia pt's HGB continue to drop to 7.3 today. Pt denies GI bleeding. anemia study, differentiate diagnosis may chronic disease, or neoplasma from blood stream and nutrition status, iron deficiency. consult with nutrition pt agree to have blood transfusion today after discuss with pt continue monitor pt's HGB, Iron study indicate possible Iron deficiency, add Iron daily will transfusion of blood to pt if HGB continue drop, and pt agree (9) pancytopenia pt is with decrease WBC and RBC, consider animal caretaker supervisor as out-pt continue daily lab vital monitor Qualifiers: Pneumonia type: due to unspecified organism Laterality: right Lung location: lower lobe of lung Qualified Code(s): J18.1 - Lobar pneumonia, unspecified organism (3) Atrial fibrillation Qualifiers: Atrial fibrillation type: chronic Qualified Code(s): I48.2 - Chronic atrial fibrillation
[2017-04-17 19:44] LABS: HCT - HEMATOCRIT 27.6 % (42.0-52.0); HGB - HEMOGLOBIN 9.3 g/dL (14.0-18.0)
--- NOTE | 2017-04-17 20:07 | CT Preliminary Report ---
Exam: CT CHEST W/O IMPRESSION: 1. There is a moderate size, likely complex right pleural effusion. 2. There is consolidation within the right lung base which may represent infiltrate and atelectasis. 3. There is a small left pleural effusion. 4. No pneumothorax. 5. There is nephrolithiasis. 6. There is mild splenomegaly. [facility] SITE ID: [id number]
--- NOTE | 2017-04-17 20:10 | CT Report ---
EXAM: CT CHEST EXAM DATE: 04/17/2017 07:28 PM. CLINICAL HISTORY: Cough, shortness of breath. COMPARISONS: None. TECHNIQUE: Routine helical CT imaging was performed through the chest. IV contrast: None. Reconstruct ions: Coronal and sagittal. In accordance with CT protocol optimization, one or more of the following dose reduction techniques w ere utilized for this exam: automated exposure control, adjustment of mA and/or KV based on patient s ize, or use of iterative reconstructive technique. FINDINGS: Lungs/Pleura: There is a moderate-sized right pleural effusion. There is consolidation within the rig ht lung base. There is a small left pleural effusion. No direct evidence of lung edema. No pneumothor ax. No focal central airway abnormalities. Mediastinum: Normal heart size. There are coronary artery calcifications. There are no enlarged axill kristen, supraclavicular, mediastinal, or hilar lymph nodes. Bones: There is sternoclavicular joint degenerative disease. No clearly acute bony abnormalities are seen. Visualized Abdomen: There is nephrolithiasis. There is mild splenomegaly. Visualized portions of the upper abdominal organs demonstrate no acute abnormalities. Other: None. IMPRESSION: 1. There is a moderate size, likely complex right pleural effusion. 2. There is consolidation within the right lung base which may represent infiltrate and atelectasis. 3. There is a small left pleural effusion. 4. No pneumothorax. 5. There is nephrolithiasis. 6. There is mild splenomegaly. [facility] Referring Provider Line: [phone] SITE ID: [id number]
[2017-04-17] MEDS ORDERED: SODIUM CHLORIDE 0.9% 500 ML IV ONE (20:45)
[2017-04-18] MEDS: PIPERACILLIN/TAZOBACTAM 3.375 GM in SODIUM CHLORIDE 0.9% MINIBAG 100 ML IV SCH ×3 (00:47→13:42)
[2017-04-18] MEDS: VANCOMYCIN INJ 1 GM in SODIUM CHLORIDE 0.9% 250 ML IV SCH (02:55)
[2017-04-18] MEDS: SODIUM CHLORIDE 0.9% 1,000 ML IV SCH (03:02)
[2017-04-18 05:43] LABS: BASOPHILS % (AUTO) 0.6 %; EOSINOPHILS # (AUTO) 0.1 10^3/uL (0.0-0.7); EOSINOPHILS % (AUTO) 2.2 %; HGB - HEMOGLOBIN 9.4 g/dL (14.0-18.0); LYMPHOCYTES % (AUTO) 27.7 %; MEAN CORPUSCULAR HEMOGLOBIN 29.6 pg (27.0-31.0); MEAN CORPUSCULAR HGB CONC 33.4 g/dL (32.0-36.0); MEAN CORPUSCULAR VOLUME 88.6 fL (80.0-94.0); MEAN PLATELET VOLUME 7.2 fL (7.4-11.4); MONOCYTES # (AUTO) 0.9 10^3/uL (0.0-1.0); NEUTROPHILS # (AUTO) 1.6 10^3/uL (1.5-6.6); NEUTROPHILS % (AUTO) 45.5 %; RED BLOOD COUNT 3.16 10^6/uL (4.70-6.10); RED CELL DISTRIBUTION WIDTH 14.7 % (12.0-15.0); UNCORRECTED WHITE BLOOD COUNT 3.6 x10^3/uL; WHITE BLOOD COUNT 3.6 x10^3/uL (4.8-10.8)
[2017-04-18 05:48] LABS: ALBUMIN/GLOBULIN RATIO 0.4 (1.0-2.2); BILIRUBIN,TOTAL 0.6 mg/dL (0.2-1.0); BUN - BLOOD UREA NITROGEN 11 mg/dL (6-20); CARBON DIOXIDE - CO2 23 mmol/L (21-32); CHLORIDE 103 mmol/L (101-111); CREATININE 0.8 mg/dL (0.6-1.2); GFR - MDRD 93 (>89); GLUCOSE 75 mg/dL (70-100); POTASSIUM 3.7 mmol/L (3.5-5.0); SODIUM 131 mmol/L (135-145); TOTAL PROTEIN 6.2 g/dL (6.7-8.2)
[2017-04-18] MEDS: SODIUM CHLORIDE FLUSH 0.9% 10 ML SYRINGE IVP SCH ×2 (05:55→13:43)
[2017-04-18] MEDS: FAMOTIDINE 20 MG TABLET PO SCH (08:29)
[2017-04-18] MEDS: FERROUS SULFATE 325 MG TABLET PO SCH (08:29)
[2017-04-18] MEDS: buPROPion XL 150 MG TABLET PO SCH (08:29)
[2017-04-18] MEDS: TAMSULOSIN 0.4 MG CAPSULE PO SCH (08:29)
[2017-04-18] MEDS: POLYETHYLENE GLYCOL 3350 17 GM PACKET PO SCH (08:30)
[2017-04-18] MEDS: DIGOXIN 125 MCG TABLET PO SCH (08:30)
[2017-04-18] MEDS: DIVALPROEX DR 250 MG TABLET PO SCH (08:30)
[2017-04-18] MEDS: SENNA 8.6 MG TABLET PO SCH (08:30)
[2017-04-18] MEDS: ENOXAPARIN 30 MG/0.3 ML SYRINGE SUBQ SCH (08:30)
[2017-04-18] MEDS: ESCITALOPRAM 10 MG TABLET PO SCH (08:30)
[2017-04-18] MEDS: AMIODARONE 200 MG TABLET PO SCH (08:30)
[2017-04-18] MEDS: ASPIRIN EC 81 MG TABLET PO SCH (08:30)
--- NOTE | 2017-04-18 11:47 | Discharge Plan ---
"Discharge Plan for SNF / [facility] - DC Plan and Transition Orders Disposition: 03 SNF DC/Xfer Condition: Stable SNF Transition Orders: Admit to: [[facility]] under the care of [Doctor Terell Acuna] Discharge Diagnosis: [pneumonia anemia HTN Afib weakness Dementia] Medicare Certification: I certify that [facility] halfway care is medically necessary on a continuing basis for any of the conditions for which she/he is receiving care during hospitalization. Notify PCP of admission and forward orders to primary provider for signature. Weight on admission and [71.5 kg]. Call PCP immediately if weight increases by [4] pounds or if patient develops dyspnea, chest pain/tightness or edema. House Bowel Program: [Yes] If no BM after 2 days, nurse may give M.O.M. 30ml PO PRN and /or ducolax Supp 1 TX and /or KATHY 250mg P.O., and/or senna 1-2 tabs PO. On day 3 nurse may give repeat above order until residents constipation is resolved. Immunizations: Annual Influenza Vaccine: [Yes]. (between Jan 17 and August 16.) Unless allergy or already given Two-Step PPD: [Yes] per [facility] 248-235 or appropriate documentation of approved exceptions Treatments & Other Orders: [May follow up PCP in one week, and have an appointment with Dr.Wendy Burgos in two weeks] Oxygen Orders: [n] Lab Tests or X-Rays Orders: [blood test including CBC in one week, CXR in one week] Orthopedic Orders: [no]. Medications: PLEASE REFER TO THE DISCHARGE MEDICATION LIST. Insulin Orders? [No] Diagnosis: no Initiate hypo and hyperglycemia protocols for BG <70 and BG >375. May check BG prn for signs/symptoms of dysglycemia. Frequency of BG checks: [AC/Meal/HS] Basal Insulin: [] Lantus 100 units / ml inject subq as follows: [] [] Other: [] Correction Insulin: - Select the type of insulin below [Choose: Novolog/Humalog]100 units /ml insulin inject subq per orders indicate below [] LOW DOSE [] MODERATE DOSE [] MODERATE/HIGH DOSE [] HIGH DOSE GB UNITS GB UNITS GB UNITS GB UNITS 61-140 0 UNITS 61-140 0 UNITS 61-140 0 UNITS 61-140 0 UNITS 141-175 1 UNITS 141-175 1 UNITS 141-175 2 UNITS 141-175 3 UNITS 176-225 2 UNITS 176-225 3 UNITS 176-225 4 UNITS 176-225 5 UNITS 226-275 3 UNITS 226-275 5 UNITS 226-275 6 UNITS 226-275 7 UNITS 276-325 4 UNITS 276-325 7 UNITS 276-325 8 UNITS 276-325 9 UNITS 326-375 5 UNITS 326-375 9 UNITS 326-375 10 UNITS 326-375 11 UNITS >375 CONTACT MD >375 CONTACT MD >375 CONTACT MD >375 CONTACT MD Custom Dosing: [Choose: None/Novolog/Humalog] 100 units/ml Insulin inject subq as follows: GB Units 61-140 [] Units 141-175 [] Units 176-225 [] Units 226-275 [] Units 276-325 []Units 326-375 [] Units >375 Contact MD Allergies and Adverse Reactions: Allergies Allergy/AdvReac Type Severity Reaction Status Date / Time No Known Drug Allergies Allergy Verified 04/14/17 14:51 - Medications New Prescriptions: Amox/Clav 500/125 [Augmentin] 1 each PO Q12H #12 tablet - Diet Type: Geriatric Texture: Mech soft Liquids: Thin Supplements: give straws with liquid, provide ensure with meal May have monthly special meal: Yes - Therapies | Activity Therapy: Evaluation | Treat if indicated: Speech, PT, OT Rehabilitation Potential: Maximize functional status Activity: Activity as Tolerated Weight Bearing: Full Weight Assistance Devices: Walker Follow Up: May follow up PCP in one week, and have an appointment with Dr.Wendy Burgos in two weeks"
--- NOTE | 2017-04-18 14:35 | DISCHARGE SUMMARY ---
Discharge Summary Discharge Date: 04/18/17 Discharging Provider: XAVIER Primary Care Provider: Dr. Terell Acuna Code Status: Do Not Attempt Resuscitation Condition at Discharge: Stable Discharge Disposition: 03 SNF DC/Xfer Discharge Facility Name: [facility] - DIAGNOSES Admission Diagnoses: 1) Pneumonia (2) HTN (hypertension) (3) Atrial fibrillation (4) Dementia (5) BPH (benign prostatic hyperplasia) (6) Bipolar 1 disorder (7) Weakness Discharge Diagnoses with Status of Each Condition: 1) Pneumonia pt was treated with IV antibiotics. after treatment, pt is no fever, chill. cough is controlled. Saturation of O2 95% with room air (2) HTN (hypertension) stable (3) Atrial fibrillation stable heart rate (4) Dementia stable (5) BPH (benign prostatic hyperplasia) stable (6) Bipolar 1 disorder stable, continue home regime (7) Weakness treated and evaluated by PT and OT, and pt was recommended to SNF (8) anemia after transfused two unit of blood. HGB is 9.4, and stable (9) pancytopenia I called Dr. Sari Burgos. recommend pt as out-pt to see her (10) right lung moderate Pleural effusion CT of chest reveals moderate pleural effusion. discuss with pt, pt decline to do further evaluation and treatment, pt state " I am good, and comfortable." - HPI History of Present Illness: please refer from Ms. Goldberg's HPI as the following: Sagar Sorensen is a 77-year-old male with a history of paroxysmal atrial fibrillation, tremor, hypertension, hyperlipidemia, and dementia who was recently sent home with his son and [id number] after completing rehab at [facility]. He developed pneumonia and was treated with a Z-Akash. He did have some improvement and was able to go back home last week. He was well for several days and then over the past 3 days he has had increase in cough, congestion, has developed a fever and shortness of breath. He will be admitted to the hospitalist service for further IV antibiotic treatment. - ALLERGIES Allergies/Adverse Reactions: Allergies Allergy/AdvReac Type Severity Reaction Status Date / Time No Known Drug Allergies Allergy Verified 04/14/17 14:51 - MEDICATIONS Home Medications: Ambulatory Orders Medication Instructions Recorded Confirmed Divalproex Sodium [Depakote] 1,000 mg PO DAILY 11/23/16 04/14/17 Escitalopram [Lexapro] 10 mg PO DAILY 11/23/16 04/14/17 Famotidine [Pepcid] 20 mg PO DAILY 11/23/16 04/14/17 Tamsulosin [Flomax] 0.4 mg PO DAILY 11/23/16 04/14/17 buPROPion [Wellbutrin Xl] 150 mg PO DAILY 11/23/16 04/15/17 Aspirin [Aspirin EC] 81 mg PO DAILY 12/01/16 04/14/17 Amiodarone HCl 200 mg PO BID 04/14/17 04/14/17 Digoxin 125 mcg PO DAILY 04/14/17 04/14/17 Loperamide [Imodium] 2 mg PO DAILY PRN 04/14/17 04/14/17 Polyethylene Glycol 3350 [Miralax] 1 pkt PO DAILY 04/14/17 04/14/17 Sennosides [Senna] 1 tab PO DAILY 04/14/17 04/14/17 Amox/Clav 500/125 [Augmentin] 1 each PO Q12H #12 tablet 04/18/17 - PHYSICAL EXAM AT DISCHARGE General Appearance: positive: No acute distress, Alert. negative: Lethargic Eyes Bilateral: positive: Normal inspection, PERRL, No lid inflammation, Conjunctivae nml ENT: positive: ENT inspection nml, Pharynx nml, No signs of dehydration. negative: Purulent nasal drainage, Pharyngeal erythema, Oral lesions Neck: positive: Nml inspection, Thyroid nml, No JVD, Trachea midline. negative : Thyromegaly, Stiff neck, Carotid bruit, Swelling/bruising, Tracheal deviation Respiratory: positive: Chest non-tender, No respiratory distress, Breath sounds nml. negative: Wheezes, Rales, Rhonchi Cardiovascular: positive: Regular rate & rhythm, No murmur, No gallop. negative : Irregularly irregular, Extrasystoles, Tachycardia, Bradycardia, Systolic murmur, Diastolic murmur Peripheral Pulses: positive: 2+ Abdomen: positive: Non-tender, No organomegaly, Nml bowel sounds, No distention. negative: Tenderness, Guarding, Rebound Back: positive: Nml inspection. negative: CVA tenderness (R), CVA tenderness (L ) Skin: positive: Color nml, No rash, Warm, Dry. negative: Cyanosis, Diaphoresis , Pallor, Skin rash Extremities: positive: Non-tender, Full ROM, Nml appearance. negative: Calf tenderness, Joint swelling, Helio's sign/cords Neurologic/Psychiatric: positive: Sensation nml, Mood/affect nml, Weakness. negative: Sensory loss, Facial droop, Slurred/abnml speech, Depressed mood/ affect - LABS Result Diagrams: 04/18/17 05:17 04/18/17 05:17 - FOLLOW UP Follow Up: May follow up PCP in one week, and have an appointment with Dr.Wendy Burgos in two weeks may have blood test with CBC and CXR in one week
[2017-04-18] MEDS ORDERED: VANCOMYCIN INJ 1 GM in SODIUM CHLORIDE 0.9% 250 ML IV SCH (15:00)
[2017-04-18 15:27] VITALS: BP 150/73
== END 2017-04-18 16:04 | DRG 194 ==
LOC: EDBD → EDUNIT# → ED 14:39 → MS2 17:11
PROVIDERS: ADMIT Nurse Practitioner; ATTEND Nurse Practitioner Gerontology
PROC: 30233N1 Transfusion of Nonautologous Red Blood Cells into Peripheral Vein, Percutaneous Approach (ICD-10-PCS; principal; 2017-04-17)
DX: J18.1 Lobar pneumonia, unspecified organism (principal); R09.02 Hypoxemia; I48.91 Unspecified atrial fibrillation; D61.818 Other pancytopenia; J90 Pleural effusion, not elsewhere classified; I48.0 Paroxysmal atrial fibrillation; I10 Essential (primary) hypertension; F03.90 Unspecified dementia, unspecified severity, without behavioral disturbance, psychotic disturbance, mood disturbance, and anxiety; N40.1 Benign prostatic hyperplasia with lower urinary tract symptoms; N39.498 Other specified urinary incontinence; F31.9 Bipolar disorder, unspecified; E78.5 Hyperlipidemia, unspecified; R25.1 Tremor, unspecified; Z96.89 Presence of other specified functional implants; Z66 Do not resuscitate; Z79.82 Long term (current) use of aspirin; Z86.79 Personal history of other diseases of the circulatory system
CPT/HCPCS: 36415; 71010; 71250; 80053; 80164; 82270; 82607; 82728; 83540; 83605; 83615; 83690; 83735; 84466; 84484; 85014; 85018; 85025; 85044; 86850; 86900; 86901; 86920; 87040; 96365; 99284

== ENCOUNTER 2017-04-21 11:52 | Outpatient (CLI) | payer MEDICARE ==
[2017-04-21 02:43] LABS: BASOPHILS % (AUTO) 0.8 %; EOSINOPHILS % (AUTO) 2.5 %; HGB - HEMOGLOBIN 10.9 g/dL (14.0-18.0); IMMATURE RETIC FRACTION 0.43; LYMPHOCYTES % (AUTO) 22.1 %; MEAN CORPUSCULAR HEMOGLOBIN 30.1 pg (27.0-31.0); MEAN CORPUSCULAR VOLUME 88.3 fL (80.0-94.0); MEAN PLATELET VOLUME 7.4 fL (7.4-11.4); MONOCYTES % (AUTO) 17.5 %; NEUTROPHILS % (AUTO) 57.1 %; RED BLOOD COUNT 3.63 10^6/uL (4.70-6.10); RED CELL DISTRIBUTION WIDTH 14.9 % (12.0-15.0); UNCORRECTED WHITE BLOOD COUNT 4.9 x10^3/uL; WHITE BLOOD COUNT 4.9 x10^3/uL (4.8-10.8)
[2017-04-21 02:50] LABS: ALBUMIN/GLOBULIN RATIO 0.5 (1.0-2.2); BILIRUBIN,TOTAL 0.4 mg/dL (0.2-1.0); CALCIUM 8.8 mg/dL (8.5-10.3); CREATININE 1.1 mg/dL (0.6-1.2); POTASSIUM 3.9 mmol/L (3.5-5.0)
[2017-04-21 04:38] LABS: BAND NEUTROPHILS % (MANUAL) 5 %; LYMPHOCYTES % (MANUAL) 18 %; NEUTROPHILS % (MANUAL) 57 %; TOTAL CELLS COUNTED 100
[2017-04-21 04:39] LABS: NP AUTO DIFFERENTIAL? YES; NP MAN DIFFERENTIAL? NO; PLATELET ESTIMATE, MANUAL NORMAL (130-450,000) (NORMAL); PLATELET MORPHOLOGY NORMAL APPEARANCE (NORMAL); WBC MORPHOLOGY (MULTIPLE) 1+ VACUOLATION (NORMAL)
== END 2017-04-21 11:53 | disposition home or self-care (01) ==
LOC: LAB.R 11:52
DX: D64.9 Anemia, unspecified (principal); I10 Essential (primary) hypertension; E03.9 Hypothyroidism, unspecified; R71.8 Other abnormality of red blood cells
CPT/HCPCS: 80053; 84443; 85025; 85044

== ENCOUNTER 2017-04-25 08:00 | Outpatient (CLI) | payer MEDICARE ==
[2017-04-25 13:43] LABS: BASOPHILS % (AUTO) 0.5 %; EOSINOPHILS # (AUTO) 0.1 10^3/uL (0.0-0.7); EOSINOPHILS % (AUTO) 1.4 %; HGB - HEMOGLOBIN 10.6 g/dL (14.0-18.0); LYMPHOCYTES # (AUTO) 1.1 10^3/uL (1.5-3.5); LYMPHOCYTES % (AUTO) 22.2 %; MEAN CORPUSCULAR HEMOGLOBIN 30.1 pg (27.0-31.0); MEAN CORPUSCULAR VOLUME 88.4 fL (80.0-94.0); MEAN PLATELET VOLUME 7.1 fL (7.4-11.4); MONOCYTES % (AUTO) 20.4 %; NEUTROPHILS # (AUTO) 2.8 10^3/uL (1.5-6.6); NEUTROPHILS % (AUTO) 55.5 %; RED BLOOD COUNT 3.51 10^6/uL (4.70-6.10); RED CELL DISTRIBUTION WIDTH 14.7 % (12.0-15.0); UNCORRECTED WHITE BLOOD COUNT 5.1 x10^3/uL; WHITE BLOOD COUNT 5.1 x10^3/uL (4.8-10.8)
[2017-04-25 14:55] LABS: CALCIUM 8.2 mg/dL (8.5-10.3); POTASSIUM 3.7 mmol/L (3.5-5.0)
== END 2017-04-25 08:01 | disposition home or self-care (01) ==
LOC: LAB.R 08:00
DX: I25.119 Atherosclerotic heart disease of native coronary artery with unspecified angina pectoris (principal); E78.5 Hyperlipidemia, unspecified
CPT/HCPCS: 80048; 85025

== ENCOUNTER 2017-04-29 11:10 | Outpatient (CLI) | payer MEDICARE ==
--- NOTE | 2017-04-29 14:49 | CONSULTATION NOTE ---
Palliative Care Consultation - Referral Referring Provider: Dr Terell Acuna Time of Visit: 11:10 Referral setting: Retirement Facility ([facility]) - Information Sources Records reviewed: RN notes reviewed, Previous records reviewed History/Review of Systems obtained from: Patient, Family, Nursing Exam limitations: Clinical condition (some difficulty enunciating words) - History of Present Illness Brief History of Present Illness: [id number] FOR PHYSICAL THERAPY, OCCUPATIONAL THERAPY, and Home Health This patient is [facility]. He will be homebound requiring assistance with all transfers due to increased weakness, debility, secondary to pneumonia. He would benefit from Home Physical Therapy for evaluation and treatment to increase his LE strength for transfers and ambulation. He would benefit from Home Occupational Therapy for evaluation and treatment related to tremors to increase his ability to feed himself and perform ADLs . He would benefit from Home Health aid for help with personal care. I recommend home PT, OT and health/bathing aid for this patient. This is a pleasant 77-year-old gentleman with a history of dementia, paroxysmal atrial fibrillation, tremor, hypertension, hyperlipidemia, bipolar I disorder, anemia, and pancytopenia who was recently hospitalized for 4 days for pneumonia. He is living at the home of his son and daughter in law. Previously he had lived in [place] for 15 years. In Feb 2016 he fell and broke his nose and also went into atrial fibrillation. He was in July of 2016, his 2nd , Irma, dying of leukemia. She had been on hospice a short time prior to her . His son moved him to the son's house on [facility] [facility] in September 2016. Initially he was stable, ambulatory, and fairly independent, able to perform his own ADLs and feed himself. But during the past 4 months (since December) the son has noted significant general decline: decreased functionality, increased weakness, difficulty with language and neurological deficits. He has a neurology appointment at [facility] on May 14 to have an MRI and EEG for: R sided inattention, decreased motor, decreased initiation, soft voice and low BP. He was also scheduled by Dr Burgos for labs today following up on anemia and pancytopenia. The patient was at [facility] for respite from 02/27-04/09 while the son and his went on vacation. During the respite stay at [facility] he was experiencing BP issues (hypotension) and atrial fibrillation. He was diagnosed with pneumonia at [facility], treated with Z-akash, and had gone home for Thanksgiving, but then was hospitalized 04/14/17 - 04/18/17 for pneumonia, treated with IV antibiotics, and discharged to [facility], again with a Z-akash. Tomorrow he is discharging to his son's home. He has lost significant weight. A year ago his baseline was 190 lbs; now he is in the 150's; most recent weight is 158.6 lbs. His recent TSH was elevated (10.58; norm is 0.34-5.60), possibly related to amiodarone treatment for atrial fibrillation. The amiodarone was DC'd and levothyroxine initiated. He will be going to [facility] again the first week of May for another respite stay when his son and [id number] go on a cruise. Medical/Surgical History - Past Medical History Cardiovascular: reports: High cholesterol, Atrial fibrillation ( Electrocardioverted on 02/16/2017.), Other Respiratory: reports: Pneumonia, Shortness of breath Neuro: reports: Dementia, Tremors Endocrine/Autoimmune: reports: HyPOthyroidism GI: reports: GERD, Chronic diarrhea, Chronic constipation POKER MANAGER: reports: None : reports: Benign prostate hypertrophy, Incontinence HEENT: reports: None Psych: reports: Bipolar disorder Musculoskeletal: reports: Osteoarthritis, Fatigue Derm: reports: None MRSA Hx?: No - Past Surgical History Cardiovascular: reports: AAA Social History - Living Situation Living arrangement: At home Living Situation: With spouse/s.o., With family Support System: Originally from [place]. He was a high school mathematics teacher. He lived 15 years in [place]. His second July 2016 of leukemia. His son, Hank, moved him to [facility] in September 2016 to live with son and daughter in law. He has another son, Byron, in [place], and a daughter, Celia, in [place]. He and his son, Hank, are members of [employer] on [facility] [address] [facility]. Medications/Allergies - Medications Home Medications: Ambulatory Orders Medication Instructions Recorded Confirmed Divalproex Sodium [Depakote] 1,000 mg PO DAILY PM 11/23/16 04/29/17 Escitalopram [Lexapro] 10 mg PO DAILY 11/23/16 04/29/17 Famotidine [Pepcid] 20 mg PO DAILY 11/23/16 04/29/17 Tamsulosin [Flomax] 0.4 mg PO DAILY 11/23/16 04/29/17 buPROPion [Wellbutrin Xl] 150 mg PO BID 11/23/16 04/29/17 Aspirin [Aspirin EC] 81 mg PO DAILY 12/01/16 04/29/17 Polyethylene Glycol 3350 [Miralax] 1 pkt PO DAILY PM 04/14/17 04/29/17 Ferrous Sulfate 325 mg PO BID #20 tablet 04/18/17 04/29/17 Acetaminophen 650 mg PO Q4H PRN MDD 3000mg 04/29/17 04/29/17 Azithromycin [Zithromax Tri-Akash] 500 mg PO DAILY 04/29/17 04/29/17 Levothyroxine [Synthroid] 75 mcg PO QDAC 04/29/17 04/29/17 Medpass 2.0 90 ml PO TID 04/29/17 - Allergies Allergies/Adverse Reactions: Allergies Allergy/AdvReac Type Severity Reaction Status Date / Time No Known Drug Allergies Allergy Verified 04/14/17 14:51 Review of Systems - Constitutional Constitutional: reports: Fatigue, Weakness, Weight loss (A year ago his baseline weight was 190 lbs. Currently: 02/27/17 162.2 lbs. 03/20/17 51.6 lbs. 03/26/17 149.5 lbs. 03/30/17 156.1 lbs. 04/20/17 161.8 lbs. 04/29/17 158.6 lbs.) - Ears, Nose & Throat Ears, Nose & Throat: reports: Hearing loss - Cardiovascular Cardiovascular: reports: Decr. exercise tolerance. denies: Irregular heart rate , Chest pain, Edema - Gastrointestinal Gastrointestinal: reports: Constipation (occasional), Diarrhea (occasional). denies: Abdominal pain, Abdominal distention - Genitourinary Genitourinary: reports: Incontinence (of bowel and bladder) - Neurological Neurological: reports: General weakness, Other (tremors in upper extremities interfere with feeding himself) - Psychiatric Psychiatric: reports: Depression, Behavior disturbances - Endocrine Endocrine: reports: Hypothyroidism (may be iatrogenic (amiodarone)) - Hematologic/Lymphatic Hematologic/Lymphatic: reports: Anemia, Other (Pancytopenia) Physical Exam - Vital Signs Temperature: 97.1 F Pulse Rate: 77 O2 Saturation: 93 Blood Pressure: 115/61 - Physical Exam General Appearance: positive: No acute distress, Lethargic Eyes Bilateral: positive: EOMI, No lid inflammation, Conjunctivae nml, No scleral icterus ENT: positive: No signs of dehydration Neck: positive: Thyroid nml, No JVD, Trachea midline Cardiovascular: positive: Regular rate & rhythm, No murmur, No gallop Respiratory: positive: Chest non-tender, No respiratory distress, Breath sounds nml Abdomen: positive: Non-tender, Soft, Nml bowel sounds Skin: positive: No symptoms Extremities: positive: Non-tender, Nml appearance, No pedal edema Neurologic/Psychiatric: positive: Oriented x3, Mood/affect nml, Weakness, Slurred/abnml speech Palliative Care - POLST Patient has POLST: Yes POLST Status: DNR, Limited Interventions Pain: No pain Tiredness/Fatigue: Moderate (4-6) Drowsiness/Sedation: Moderate (4-6) Nausea: None Depression: Mild (1-3) Anxiety: None Dyspnea: None Anorexia: Mild (1-3) Sleep: Sleeps well Constipation: Managed Feelings of wellbeing/Perceived Quality of Life: Fair (When he gets back home, he thinks his QOL will be good.) Performance Status: Previous level of functionality prior to this episode: Ambulatory with walker, self-transferring, able to feed himself and perform ADLs, verbally articulate, cognitively intact. Current level of functioning: Significant functional decline in the past 4 months: requires assist with all transfers (sometimes two-person assist), no longer ambulatory, incontinent of bladder and bowel, requires assistance with all ADLs, decreased ability to self feed due to increased tremors, increased expressive aphasia: periods of clear articulation then stutter, word search, difficulty with enunciation. He has a neurology appointment at [facility] on May 14 to have an MRI and EEG for: R sided inattention, decreased motor, decreased initiation, soft voice and low BP. Palliative Care Performance Status: 40% - Palliative Care Discussion: Who is present: The patient, his son/DPOA Hank Sorensen, myself Surrogate decision maker: Hank Sorensen, son, lives on [facility] [address]: home [phone]. . His-in-law, Marlena, is an experienced RN. He has two other adult children: Celia in , Byron in [place]. Patient/Family understanding of the illness: Does have insight and understanding of the seriousness of patients current condition. Most important goals: Patient is not totally opposed to future hospitalizations , and is willing to be hospitalized if needed, but he does prefer to avoid them. He is looking forward to going home (to his son's house) where he believes his quality of life will increase from "fair" presently to "good." His goal is to be able to walk down to the end of the driveway and back. His desire is to have PT and OT therapy in the home to help him achieve this goal. I educated that goal is the ideal, and PT will work on strengthening his LEs and transfers. He will be assigned "homework" exercises by the therapist. He states he is willing to work at this and knows that the ann is being consistent. His son is in agreement with PT/OT to increase strength and functionality. They are both familiar with Hospice: the patient's was on Hospice for a short while prior to her , and the son understands it too, and his is a long-time RN, so she is very familiar with it. We discussed the difference between palliative care and hospice and I provided education and anticipatory guidance about criteria for transitioning into Hospice. Both patient and his son have had experience with hospice and appreciating obtaining more information and having an idea of what to expect. Patient/family concerns: The patient is discharging from the penitentiary facility tomorrow afternoon. The plan is that the son and [id number] will be providing care giving at home, along with outside help. They have already engaged with [facility] and are following up on that. They have already had experience with taking care of the patient, and the [id number] is an experienced nurse. They do request additional support with home health aids who can bathe and assist the patient with his personal care. The son declined SW support and event promotions coordinator support at this time. Impression and Recommendations - Palliative Care Impression: This is a pleasant 77-year-old gentleman with a history of dementia, paroxysmal atrial fibrillation, tremor, hypertension, hyperlipidemia, bipolar I disorder, anemia, and pancytopenia who was recently hospitalized for 4 days for pneumonia. He has had significant decline in the past 4 months, with increased weakness, inability to self-transfer and ambulate, weight loss, incontinence of bowel and bladder, and increased neurologic deficits. He is discharging from SNF tomorrow and will go home with his son and [id number] who are his caretakers. They are engaging additional care giving support. The patient would benefit from PT, OT, and home health aid. He needs close monitoring of functional status and transitioning to Hospice if indicated. Recommendations/Counseling Done: Constipation: Continue Miralax 17g daily, can titrate down to 1/4 - 1/3 capful daily if stools are loose. Senna was DC'd on 04/20/17, so was loperamide. Cough: Start guaifenesin 100mg/5mL, take 10mL PO q4h prn and benzonatate 100mg capsule TID PRN for symptom control. Sleep with head of bed elevated. Weight loss: Continue previously prescribed Medpass, 90ml TID. Add powdered milk to increase calories. Small, frequent meals, with high calorie snacks. SP has done evaluation and interventions. Hypothyroidism: Possibly iatrogenic, caused by amiodarone, which is now DC'd. Continue thyroid control with previously prescribed levothyroxine 75mcg daily. Debility, age-related: I recommend home physical therapy to increase LE strength for transfers, ambulation, and OT to increase ability to perform ADLs, and home health aid for assistance with self-care Advanced care planning: POLST already in place: DNR and limited. Patient confirmed that this still reflects his wishes and goals; we will reconfirm it at follow-up visit in his home setting. Monitor for transition to Hospice when appropriate. Follow up visit at end of week. Time Spent: 90 minutes were spent with more than 50% of the time spent on counseling, education, and coordination of care.
== END 2017-04-29 11:11 | disposition home or self-care (01) ==
LOC: PC 11:10
PROVIDERS: ATTEND Nurse Practitioner
DX: Z51.5 Encounter for palliative care (principal); F03.90 Unspecified dementia, unspecified severity, without behavioral disturbance, psychotic disturbance, mood disturbance, and anxiety; J18.9 Pneumonia, unspecified organism; K59.00 Constipation, unspecified; R05 Cough; R63.4 Abnormal weight loss; E03.9 Hypothyroidism, unspecified; R54 Age-related physical debility; R53.1 Weakness; I48.0 Paroxysmal atrial fibrillation; R25.1 Tremor, unspecified; I10 Essential (primary) hypertension; E78.5 Hyperlipidemia, unspecified; F31.9 Bipolar disorder, unspecified; D64.9 Anemia, unspecified; D61.818 Other pancytopenia; Z79.82 Long term (current) use of aspirin; R15.9 Full incontinence of feces; R32 Unspecified urinary incontinence; M62.81 Muscle weakness (generalized); Z66 Do not resuscitate
CPT/HCPCS: 99306

== ENCOUNTER 2017-05-02 17:56 | Outpatient (CLI) | payer MEDICARE ==
--- NOTE | 2017-05-02 13:51 | CONSULTATION NOTE ---
Palliative Care Follow Up - Referral Referring Provider: Dr Terell Acuna Time of Visit: 9:30 Referral setting: Home - Information Sources Records reviewed: Previous records reviewed History/Review of Systems obtained from: Patient, Family Exam limitations: No limitations - History of Present Illness Update Brief HPI Update: This is a frail, pleasant 77-year-old gentleman with a history of dementia, paroxysmal atrial fibrillation, tremor, hypertension, hyperlipidemia, bipolar I disorder, anemia, and pancytopenia. He was recently hospitalized for 4 days for pneumonia, was discharged to [facility] for rehab. On 04/30/17 he was discharged back home to his son and deievups-sn-zjz's house, where he had been living since September 2016. Starting in October he has had a significant decline in functionality and strength. He had been at [facility] for respite relief when he acquired pneumonia, likely caused by aspiration. He has been doing well since his discharge back home. The plan is to start him on Home Health PT and OT. In the mean time, he is doing some of the exercises he learned while in PT at the [facility]. His son and daughter in law will be traveling, and so he will go back to [facility] for respite from 05/18 and will return home 05/27/17. So HH therapy will start around 05/28/17. He reports only one bowel movement since discharge from [facility]. He has been sleeping well and has a good appetite. He has a candidiasis rash of the groin, and they are currently using barrier cream. His R side is weak with ambulation and he tilts to the R when seated. He has a very slow and careful gait, and needs stand-by assist while ambulating and transferring. He is in a very good mood today. He specifically wanted to tell me how well his son and ciwzspbh-uj-hld are taking care of him and how much they do for him. He says his quality of life is "excellent." He was smiling throughout this visit and assessment, and was noticeably cheerful and sociable. His son has spoken to [facility] and plans to have clinical care leader support MWF a couple of hours in the mornings and perhaps also in the afternoons. [place] and surrounded by several acres. They raise cattle on the land. The patient has his own room and bathroom near the kitchen. He has a hospital bed, and a bre-wq-kxush recliner. There are no loose area rugs, or steps for him to navigate between his room and the kitchen/family room. It's a very pleasant and functional set up. He had a very low BP today (64/50) but I believe this is at least partly attributed to the cuff being too large. His son, and his daughter in law both say he has consistent low BP. The systolic has been as low as 70 in the past. The patient denies dizziness, weakness, syncope. I encouraged him to increase fluid intake. His DIL, an RN, will retake his BP later today with their own equipment. Social History - Living Situation Living arrangement: At home Living Situation: With family (Lives with son and [id number] in their [place] home surrounded [place] acreage and with [place] views.) Medications/Allergies - Medications Home Medications: Ambulatory Orders Medication Instructions Recorded Confirmed Divalproex Sodium [Depakote] 1,000 mg PO DAILY PM 11/23/16 05/02/17 Escitalopram [Lexapro] 10 mg PO DAILY 11/23/16 05/02/17 Famotidine [Pepcid] 20 mg PO DAILY 11/23/16 05/02/17 Tamsulosin [Flomax] 0.4 mg PO DAILY 11/23/16 05/02/17 buPROPion [Wellbutrin Xl] 150 mg PO BID 11/23/16 05/02/17 Aspirin [Aspirin EC] 81 mg PO DAILY 12/01/16 05/02/17 Polyethylene Glycol 3350 [Miralax] 1 pkt PO DAILY PM 04/14/17 05/02/17 Ferrous Sulfate 325 mg PO BID #20 tablet 04/18/17 05/02/17 Acetaminophen 650 mg PO Q4H PRN MDD 3000mg 04/29/17 05/02/17 Levothyroxine [Synthroid] 75 mcg PO QDAC 04/29/17 05/02/17 Lactose-Reduced Food [Ensure 118 ml PO DAILY 05/02/17 05/02/17 Compact] Senna [Senokot] 8.6 mg PO BID 05/02/17 05/02/17 - Allergies Allergies/Adverse Reactions: Allergies Allergy/AdvReac Type Severity Reaction Status Date / Time No Known Drug Allergies Allergy Verified 04/14/17 14:51 Review of Systems - Constitutional Constitutional: reports: Weakness, Weight loss (Prior baseline was 195 lbs. Now in 150s. Most recent weight 158.6 lbs on 04/29/17.). denies: Poor appetite - Ears, Nose & Throat Ears, Nose & Throat: reports: Hearing loss - Cardiovascular Cardiovascular: reports: Orthopnea (occasionally). denies: Chest pain, Lightheadedness, Syncope, Exertional dyspnea - Respiratory Respiratory: reports: Cough (sporadic). denies: SOB at rest - Gastrointestinal Gastrointestinal: reports: Constipation. denies: Diarrhea, Nausea, Vomiting - Genitourinary Genitourinary: denies: Dysuria, Frequency, Urgency - Musculoskeletal Musculoskeletal: reports: Stiffness, Limited range of motion, Assistive devices (walker), Transfer issues (requires one-person stand by, and sometimes 2-person assist. Uses [id number]-se-[id number] recliner). denies: Muscle pain - Neurological Neurological: reports: General weakness - Psychiatric Psychiatric: denies: Depression, Anxiety, Behavior disturbances - Endocrine Endocrine: reports: Hypothyroidism Physical Exam - Vital Signs Temperature: 96.5 F Pulse Rate: 78 O2 Saturation: 95 Blood Pressure: 64/50 (likely due to wrong size cuff) - Physical Exam General Appearance: positive: No acute distress, Alert Eyes Bilateral: positive: EOMI, No lid inflammation, Conjunctivae nml, No scleral icterus ENT: positive: No signs of dehydration Neck: positive: Thyroid nml, No JVD Cardiovascular: positive: Regular rate & rhythm, No murmur, No gallop Respiratory: positive: Chest non-tender, No respiratory distress, Breath sounds nml Abdomen: positive: Non-tender Skin: positive: Rash (candidiasis, groin) Neurologic/Psychiatric: positive: Mood/affect nml, Disoriented to time, Slurred/ abnml speech (improved today) Palliative Care - POLST Patient has POLST: Yes POLST Status: DNR, Limited Interventions Pain: No pain Tiredness/Fatigue: None Drowsiness/Sedation: None Nausea: None Depression: None Anxiety: None Dyspnea: None Anorexia: None Sleep: Sleeps well Constipation: Yes, Managed (will add senna) Feelings of wellbeing/Perceived Quality of Life: Excellent Performance Status: He has a neurology consultation at [facility] on Deceber 27 for DEIDRE and EEG for R sided inattention, decreased motor decreased initiation, soft voice, low BP. On 05/27/[address] Burgos, break out worker to follow up on labs. - Palliative Care Discussion: The family will go ahead with Home Health PT and OT (the insurance covers only half of the cost), and they will start it after he returns from respiste at [facility]. He'll be there from 05/18/17 to 05/27/17. The goal is to increase strength and improve transfers and balance. Impression and Recommendations - Palliative Care Impression: This is a frail, pleasant 77-year-old gentleman with a history of dementia, paroxysmal atrial fibrillation, tremor, hypertension, hyperlipidemia, bipolar I disorder, anemia, and pancytopenia. He was recently hospitalized for pneumonia, and he has had a significant decline in functionality, balance and strength over the past 4 months, as well as weight loss. He is at significant risk of falls and infection and their sequelae. He will start home health therapy next month to increase strength and improve transfer ability. Goals of care are comfort, avoiding hospitalization, and transition to hospice when appropriate. Recommendations/Counseling Done: Constipation: Continue Miralax 17g daily (titrate from 05/22 - 1 capful daily), and added Senna 8.6mb daily. Cough: My script from last visit at [facility] did not make it home with them, so rewrote it: guaifenesin 100mg/5mL, take 10mL PO q4h prn and benzonatate 100mg capsule TID PRN for symptom control. Sleep with head of be delevated. He has had SP teaching, son needs to remind patient what they learned about swallowing , pausing, etc. Weight loss: Appetite is good. He is drinking Ensure about once a day, can add powdered milk to increase caloric intake. Reminded him about frequent, small, high-calorie meals. Today he was having blueberry pancakes. Hypothyroidism: Continue levothyroxine 75mcg daily. May have been caused by amiodarone, which has been DC'd. Age-related debility: Home health PT and OT to begin around 05/28/17. Advanced Care Planning: Reconfirmed that POLST of DNR, limited, avoid hospitalizations, is still accurate. Patient confirms it is. Follow up visit with patient at [facility] the week of 05/19/17. Time Spent: 45 minutes were spent with more than 50% of the time spent on counseling, education, and coordination of care.
== END 2017-05-02 17:57 | disposition home or self-care (01) ==
LOC: PC 17:56
PROVIDERS: ATTEND Nurse Practitioner
DX: Z51.5 Encounter for palliative care (principal); K59.00 Constipation, unspecified; R63.4 Abnormal weight loss; E03.9 Hypothyroidism, unspecified; R54 Age-related physical debility; I48.0 Paroxysmal atrial fibrillation; R25.1 Tremor, unspecified; I10 Essential (primary) hypertension; E78.5 Hyperlipidemia, unspecified; F31.9 Bipolar disorder, unspecified; D64.9 Anemia, unspecified; D61.818 Other pancytopenia; Z79.82 Long term (current) use of aspirin; M62.81 Muscle weakness (generalized); Z66 Do not resuscitate
CPT/HCPCS: 99349

== ENCOUNTER 2017-05-09 10:49 | Outpatient (CLI) | payer MEDICARE ==
--- NOTE | 2017-05-09 17:56 | XRAY Report ---
DATE OF SERVICE: 05/09/2017 EXAM: TWO VIEW CHEST CLINICAL INDICATION: Pneumonia. COMPARISON: 04/14/2017, CT 04/17/2017. FINDINGS: Frontal and lateral views of the chest demonstrate a normal cardiac silhouette. Right bas ilar infiltrate and effusion have decreased, with small residual laterally. Calcified granulomas and medi astinal lymph nodes are stable. The left lung is clear. Emphysematous changes are stable. IMPRESSION: INTERVAL IMPROVEMENT IN RIGHT BASILAR INFILTRATE AND EFFUSION. 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 TD: 05/09/2017 16:53
== END 2017-05-09 10:50 | disposition home or self-care (01) ==
LOC: DI.S 10:49
PROVIDERS: ATTEND Internal Medicine
DX: J18.9 Pneumonia, unspecified organism (principal); J43.9 Emphysema, unspecified
CPT/HCPCS: 71020